=== PATIENT | male | born 1970 | race Caucasian/White ===

== ENCOUNTER 2021-02-12 22:04 | Inpatient (IN) | payer BC, SELFPAY ==
[~2021-02-12] VITALS: Ht 180.3 cm; Wt 5.9 kg
[2021-02-12 22:21] VITALS: BP 138/74
--- NOTE | 2021-02-12 22:27 | NUR ---
PT AMBULATED TO LOBBY WITH EVEN AND STEADY GAIT.
--- NOTE | 2021-02-12 22:30 | NUR ---
PT. IS A 50 Y/O MALE THAT CAME INTO ED WITH LEFT TOE PAIN. PT. STATES A WEEK AGO HE TOOK OFF A SCAB ON LEFT TOE AND "TOE PROGRESSED WORSE." PT. RATES PAIN 0/10 ON THE PAIN SCALE. FULL RANGE OF MOTION OF BILATERAL FEET NOTED. LEFT SECOND TOE IS BLACK (NECROTIC). PT. STATES FEVER FOR PAST DAYS, BUT ALSO STATES "I HAD MY COVID SHOT A DAY OR TWO AGO." SKIN IS PINK/WARM/DRY; AAOX4 WITH EVEN AND STEADY GAIT; HR EVEN AND REGULAR; VSS; PATIENT POSITIONED FOR COMFORT; HOB ELEVATED; BEDRAILS UP X2; BED DOWN. ER MD MADE AWARE OF PT STATUS. PMH: DM, HTN, "KIDNEY PROBLEMS" ALLERGIES: NKA
--- NOTE | 2021-02-12 23:51 | NUR ---
Shirley olguin in [facility] - 02/13/21 at [address] Gomes examining patient.
--- NOTE | 2021-02-13 00:01 | NUR ---
Dr. Gomes examining patient.
[2021-02-13] MEDS ORDERED: cefTRIAXone 1,000 MG in DEXT 5% MINI-BAG PLUS 50 ML IV ONE (00:05)
[2021-02-13] MEDS ORDERED: NACL 0.9% 1,000 ML IV SCH (00:05)
--- NOTE | 2021-02-13 00:12 | NUR ---
TUCKER COMPLETED AND HANDED TO VICTORIA FROM LAB
--- NOTE | 2021-02-13 00:15 | NUR ---
LABS DRAWN AND HANDED TO VICTORIA FROM LAB.
--- NOTE | 2021-02-13 00:23 | NUR ---
XRAY AT BEDSIDE
[2021-02-13] MEDS ORDERED: cefTRIAXone 1,000 MG VIAL ONE (00:24)
[2021-02-13 00:34] LABS: BASOPHILS # (AUTO) 0.1 K/uL (0.00-0.22); BASOPHILS % (AUTO) 0.2 % (0.0-2.0); EOSINOPHILS % (AUTO) 0.1 % (0.0-4.0); HEMATOCRIT 21.5 % (36-52); HEMOGLOBIN 7.1 g/dL (12.0-18.0); LYMPHOCYTES # (AUTO) 1.1 K/uL (2.0-11.5); LYMPHOCYTES % (AUTO) 3.8 % (20.5-51.1); MEAN CORPUSCULAR HEMOGLOBIN 30 pg (27-31); MEAN CORPUSCULAR HGB CONC 33 g/dL (33-37); MEAN CORPUSCULAR VOLUME 91.7 fL (80-94); MONOCYTES # (AUTO) 2.5 K/uL (0.8-1.0); MONOCYTES % (AUTO) 8.3 % (1.7-9.3); NEUTROPHILS # (AUTO) 26.5 K/uL (1.8-7.7); NEUTROPHILS % (AUTO) 87.6 % (42.2-75.2); PLATELET COUNT (AUTO) 344 K/uL (140-450); RED BLOOD CELL COUNT(AUTO) 2.35 MIL/uL (4.20-6.10); RED CELL DISTRIBUTION WIDTH 12.6 % (11.6-13.7)
[2021-02-13 00:43] LABS: ALBUMIN 3.1 g/dL (3.4-5.0); CARBON DIOXIDE 21.9 mmol/L (21-32); POTASSIUM 3.9 mmol/L (3.5-5.1); TOTAL BILIRUBIN 0.4 mg/dL (0.0-1.0)
--- NOTE | 2021-02-13 00:55 | NUR ---
RECHECKED TEMP ORAL = 98.8
[2021-02-13 00:56] LABS: WHITE BLOOD COUNT (AUTO) 30.3 K/uL (4.8-10.8)
[2021-02-13 00:58] LABS: CREATININE 13.4 mg/dL (0.6-1.3)
--- NOTE | 2021-02-13 02:34 | NUR ---
LIYAH SANDS AT BEDSIDE
[2021-02-13] MEDS ORDERED: ACETAMINOPHEN 325 MG TAB PO PRN (02:45)
[2021-02-13] MEDS ORDERED: KCL 20 MEQ/WATER INJ PREMIX 200 ML IV PRN (02:45)
[2021-02-13] MEDS ORDERED: MAGNESIUM OXIDE 400 MG TAB PO PRN (02:45)
[2021-02-13] MEDS ORDERED: HYDROcodone/APAP 5/325 MG 1 TAB TAB PO PRN (02:45)
[2021-02-13] MEDS ORDERED: MAG SULF 2000 MG/WATER PREMIX 50 ML IV PRN (02:45)
[2021-02-13] MEDS ORDERED: POTASSIUM CHLORIDE 10 MEQ TABER PO PRN (02:45)
[2021-02-13] MEDS ORDERED: ONDANSETRON 4 MG/2 ML VIAL IVP PRN (02:45)
[2021-02-13] MEDS ORDERED: VANCOMYCIN PER PHARMACY MC PRN (02:45)
[2021-02-13] MEDS ORDERED: MORPHINE SULFATE 4 MG/ML SYR IVP PRN (02:45)
[2021-02-13] MEDS ORDERED: ERGO-30 PO (03:02)
[2021-02-13] MEDS ORDERED: FURO-572 PO (03:02)
[2021-02-13] MEDS ORDERED: INSU100S22 SUBQ (03:02)
[2021-02-13] MEDS ORDERED: AMLO2.5T PO (03:02)
[2021-02-13] MEDS ORDERED: VANCOMYCIN 1GM/DEXT 5% PREMIX 200 ML IV SCH (03:15)
[2021-02-13] MEDS: NACL 0.9% 1,000 ML IV SCH ×2 (03:40→16:13)
[2021-02-13] MEDS ORDERED: VANCOMYCIN 1,000 MG VIAL ONE (03:55)
--- NOTE | 2021-02-13 05:00 | NUR ---
PT. LAYING COMFORTABLY WITH EYES CLOSED IN SUPINE POSITION WITH AT BEDSIDE. AUDIBLE SNORING SOUNDS CAN BE HEARD. VOICES NO COMPLAINTS AT THIS TIME.
--- NOTE | 2021-02-13 05:40 | NUR ---
PT. AMBULATED TO BATHROOM WITH EVEN AND STEADY GAIT
--- NOTE | 2021-02-13 07:12 | NUR ---
GAVE REPORT TO OSVALDO ARCHIBALD. TRANSFER OF CARE AT THIS TIME.
--- NOTE | 2021-02-13 07:36 | NUR ---
Patient resting in bed, vital signs stable, all needs met at this time.
[2021-02-13] MEDS: DOCUSATE SODIUM 100 MG GELCAP PO SCH (09:25)
[2021-02-13] MEDS: INSULIN LISPRO SLIDING SCALE 100 UNITS/ML VIAL SUBQ PRN (10:11)
[2021-02-13 10:54] LABS: ANION GAP 19.3 (8-16); CARBON DIOXIDE 20.7 mmol/L (21-32)
[2021-02-13 10:57] LABS: CREATININE 12.7 mg/dL (0.6-1.3)
--- NOTE | 2021-02-13 17:06 | NUR ---
DC PLANNING: ORDERS RECEIVED TO SET UP OP HD. JACKIE SPOKE WITH [employer], INSTRUCTIONS TO FAAX INFORMATION TO [facility]. PHONE # [phone], FAX [phone]. JACKIE WILL FOLLOW UP ON TUESDAY AFTER HD ACCESS PLACED AND HD STARTED. Addendum: 02/17/21 at 0906 by Katerine Moreira CM DC PLANNING: PATIENT STARTED HD ON 02/13 AFTER RIGHT IJ WAS PLACED. SPOKE WITH DR TURK TO LET HIM KNOW THAT OP HD ARRANGEMENTS HAVE BEEN STARTED AND THAT PATIENT WILL REQUIRE MORE PERMANENT ACCESS BEFORE HE IS DC'D. JACKIE LEFT A MESSAGE FOR THE HD COORDINATOR ASSIGNED BY VASILIY HARKINS ([phone]), MESSAGE LEFT ASKING FOR UPDATE ON ARRANGEMENTS. JACKIE WILL FOLLOW FOR NEEDS. 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 CLINICAL INFORMATION FAXED TO SHAHANA SANDS, FOLLOWED UP WITH HIS HD COORDINATOR ALY ([phone]), WAITING FOR CLARIFICATION ON TB CLEARANCE, LAB VS CXR. PATIENT LIVES WITH HIS AND 2 CHILDREN IN A SINGLE STORY HOUSE, IS IN SALES. HAS NOT BEEN COMPLIANT WITH DM MANAGEMENT IN THE PAST, NOW HAS A CONTINUOUS MONITORING PATCH AND SCANNER. CURRENTLY HAS [employer], AND IS WORKING WITH P.T. FOR AMBULATION. WILL REQUEST A FWW FROM INSURANCE, PATIENT HAS NO PRIOR H/O HOME HEALTH OR OTHER DME ASIDE FROM A GLUCOMETER. PATIENTS STATES SHE IS ABLE TO PROVIDE SUPPORT FOR HIS WOUND CARE, CM WILL ALSO ASK FOR HOME HEALTH TO FOLLOW INITIALLY AFTER DISCHARGE. ALL OF ABOVE DISCUSSED WITH THE PATIENT AND HIS WHO ARE IN AGREEMENT WITH PLAN. PATIENT WILL RETURN HOME WITH HOME HEALTH AND FWW AFTER DC WITH OP HD. CM WILL FOLLOW FOR NEEDS. Addendum: 02/17/21 at 1642 by Katerine Moreira CM DC PLANNING: CM SPOKE WITH LUCIANO FROM [employer], [facility] FOR CONTINUED STAY [id number], INSURANCE DOES NOT WANT PATIENT TO TRANSFER IN-NETWORK UNDER [employer]. CM WILL FOLLOW FOR NEEDS. Addendum: 02/18/21 at 1216 by Katerine Moreira CM DC PLANNING: TB CLEARANCE AND HEP B CORE REQUESTED BY ALY AT [facility], ORDERS PLACED FOR 2 VIEW CXR FOR TB, LAB ORDER PLACED. ENDORSED PATIENT REQUEST FOR A CHAIR TIME LATE IN THE DAY POSSIBLE, NOW PENDING PLACEMENT OF TUNNEL CATH FOR HD ACCESS ONCE PATIENT IS CLEARED BY ID. JACKIE WILL FOLLOW FOR NEEDS. Addendum: 02/20/21 at 1128 by Katerine Moreira CM DC PLANNING: UPDATED CLINICAL REVIEW GIVEN TO JACKIE MENDIETA FOR [facility] ([phone]). SPOKE WITH ALY AT [employer] ([phone]), FAXED UPDATED HD FLOW SHEETS. CHAIR TIME NOT YET ASSIGNED. PATIENT TO SURGERY TODAY FOR LEFT METATARSAL AMPUTATION, POSSIBLE TUNNEL CATH NEXT WEEK. CM WILL FOLLOW FOR NEEDS. Addendum: 02/23/21 at 0927 by Katerine Moreira CM DC PLANNING: TC CLARK LU AT [facility], STATES THAT PATIENT IS SET UP FOR [facility], CHAIR TIME 4:45 AM, TENTATIVELY SCHEDULED TO START SUNDAY 02/25. START TIME IS FLEXIBLE PENDING TUNNEL CATH PLACEMENT. CM WILL FOLLOW FOR NEEDS. Addendum: 02/23/21 at 1606 by Katerine Moreira CM DC PLANNING: CM SPOKE WITH GAYATRI AT [facility], GAVE UPDATED CLINICAL REVIEW. GAYATRI STATES THAT [facility] IS GETTING AN SARAH FOR THE [employer]OTHES IR[employer]ER WHO COVERS [facility], AND IS AWARE THAT PATIENT IS GOING TO SURGERY TODAY FOR METATARSAL AMPUTATION AND TUNNEL CATH PLACEMENT FOR HD. PATIENT WILL ALSO NEED HOME HEALTH AND A FWW. CM WILL FOLLOW FOR NEEDS. Addendum: 02/24/21 at 1056 by Katerine Moreira CM DC PLANNING: ORDERS FOR FWW AND HOME HEALTH FAXED TO JACKIE MENDIETA AT [facility]/[employer]. CM WILL FOLLOW FOR NEEDS. Addendum: 02/24/21 at 1103 by Katerine Moreira CM DC PLANNING: CM SPOKE WITH ALY AT [facility], CONFIRMED THAT PATIENT WILL START AT [facility] ON 02/27. CM WILL CONTINUE TO FOLLOW. Addendum: 02/24/21 at 1222 by Katerine Moreira CM DC PLANNING: JACKIE SPOKE WITH DR TIAN TO UPDATE HIM ON DC ARRANGEMENTS AND LACK OF FINAL CLEARANCE FROM [facility]ILI[facility] PASHA AND [facility]. VM FROM GAYATRI MEJIA AT [facility]. PATIENT FWW ARRANGED WITH ZACARI[facility], , HOME HEALTH ARRANGED WITH [facility]NA[facility] [phone]. JACKIE SPOKE WITH DR. OG LAYTON DP, STATES SHE WILL SPEAK WITH DR PAK FOR CLEARANCE TO DC AND WOUND ARE RECOMMENDATIONS. STATES THAT THE DAILY WOUND CARE STATED IN HER 02/24 NOTES SHOULD START TOMORROW WITH HOME HEALTH. SPOKE WITH ALY AT [facility], SHE STATES SHE IS WAITING FOR THEM TO RESPOND REGARDING CHAIR TIME IN AM. PATIENT GIVEN [facility] ADDRESS, PHONE NUMBER AND DAYS AND CHAIR TIME FOR HIS HD. CM WILL FOLLOW FOR NEEDS. Addendum: 02/24/21 at 1441 by Katerine Moreira CM DC PLANING: PATIENT DC ON HOLD SARAH WITH [employer] HAS NOT BEEN EXECUTED BY [facility]. DR [facility]IAN [facility] NOTIFIED OF DELAY. CM WILL FOLLOW FOR NEEDS. Addendum: 02/25/21 at 1028 by Katerine Moreira CM DC PLANNING: LEFT FOR GAYATRI AT [facility] ENDORSING DC IN AM PATIENT IS RECEIVING HD TODAY. ALSO NOTIFIED [facility] HOME HEALTH PLAN FOR DC IN AM. JACKIE WILL FOLLOW. Addendum: 02/26/21 at 1400 by Katerine Moreira CM DC PLANNING: PATIENT TO DC HOME TODAY. JACKIE NOTIFIED [facility] OF HIS DISCHARGE ([phone]). JACKIE NOTIFIED [facility] OF PATIENT DC TODAY. JACKIE NOTIFIED ALY VILLAGOMEZ [facility] OF HIS DC TODAY. JACKIE SPOKE WITH THE PATIENTS NURSE VALENTINO, ENDORSED THAT PATIENT WILL NEED SOME WOUND CARE SUPPLIES SENT HOME WITH HIM. CM WILL FOLLOW FOR NEEDS.
--- NOTE | 2021-02-13 17:27 | NUR ---
RECEIVED PT FROM ER PATIENT ALERT, AWAKE , ORIENTED, NO C/O PAIN, FAMILY AT BEDSIDE, PATIENT TALKING TO RESIDENT MD AT THIS TIME, ON ROOM AIR, NO SHORTNESS OF BREATH NOTED, WILL ENDORSE.
[2021-02-13 17:30] VITALS: BP 172/91
--- NOTE | 2021-02-13 17:31 | NUR ---
OH EXPLAINED PROCEDURE, PT SAID NO QUESTIONS CONCERNS OR COMMENTS AT THIS TIME .
--- NOTE | 2021-02-13 17:36 | NUR ---
PT WITH FEVER DR PAK AWARE, ICE PACK APPLIED UNDER ARM.
--- NOTE | 2021-02-13 17:39 | NUR ---
PT TEMP 101 PT GIVEN PRN MEDICATION
--- NOTE | 2021-02-13 18:25 | NUR ---
HD NURSE CALLED REGARDING HEMODIALYSIS ORDER.
--- NOTE | 2021-02-13 19:25 | NUR ---
PT ENDORSED TO SOFTWARE ENGINEER SALES RN . PT STABLE
[2021-02-13 20:00] VITALS: BP 145/76
[2021-02-13] MEDS ORDERED: OSMITROL 25% 12.5 GM/50 ML VIAL IV ONE (21:00)
[2021-02-13] MEDS: OSMITROL 25% 12.5 GM/50 ML VIAL IV SCH ×3 (21:00→22:00)
--- NOTE | 2021-02-13 21:00 | NUR ---
HEPARIN NOT ADMINISTERED D/T PATIENT IS SCHEDULED FOR SURGERY TOMORROW AT 9AM.
--- NOTE | 2021-02-13 22:00 | NUR ---
MANNITOL WAS ADMINISTERED BY DIALYSIS NURSE X3 DURING DIALYSIS.
[2021-02-13] MEDS ORDERED: DEXTROSE 50% 50 ML SYR IVP PRN (23:15)
[2021-02-14] VITALS: BP 135/72
[2021-02-14] MEDS: NACL 0.9% 1,000 ML IV SCH ×2 (03:45→16:15)
[2021-02-14 04:00] VITALS: BP 151/87
--- NOTE | 2021-02-14 04:51 | NUR ---
PATIENT IS SLEEPING. NO SOB NOTED AT THIS TIME.SAFETY PRECAUTIONS IN PLACE. CALL LIGHT WITHIN REACH.
[2021-02-14] MEDS: BLOOD GLUCOSE MONITORING 1 DEV DEV FS SCH ×4 (06:56→21:26)
--- NOTE | 2021-02-14 07:25 | NUR ---
ENDORSED TO AM NURSE FOR CONTINUITY OF CARE. PATIENT IS STABLE
--- NOTE | 2021-02-14 07:26 | NUR ---
RECEIVED REPORT FROM HOTEL DESK CLERK NURSE. PATIENT SITTING IN BED WATCHING TV. NO DISTRESS NOTED. DENIES ANY PAIN. AAOX4, CALM, COOPERATIVE, APPROPRIATE AFFECT. IV SITE INTACT, PATENT, AND INFUSING IVF PER MD ORDERS. LEFT 2ND TOE NECROTIC WITH ODOR, DRESSINGS DRY AND INTACT. SCHEDULED FOR AMPUTATION OF TOE THIS AM. REVIEWED PLAN OF CARE WITH PATIENT. PATIENT VERBALIZED UNDERSTANDING. SAFETY MEASURES IN PLACE, CALL LIGHT WITHIN REACH. WILL CONTINUE TO MONITOR.
[2021-02-14 07:29] LABS: BASOPHILS # (AUTO) 0.1 K/uL (0.00-0.22); BASOPHILS % (AUTO) 0.2 % (0.0-2.0); EOSINOPHILS % (AUTO) 0.1 % (0.0-4.0); HEMATOCRIT 26.7 % (36-52); LYMPHOCYTES # (AUTO) 0.6 K/uL (2.0-11.5); LYMPHOCYTES % (AUTO) 2.3 % (20.5-51.1); MEAN CORPUSCULAR HEMOGLOBIN 30 pg (27-31); MEAN CORPUSCULAR HGB CONC 34 g/dL (33-37); MEAN CORPUSCULAR VOLUME 88.9 fL (80-94); MONOCYTES % (AUTO) 7.7 % (1.7-9.3); NEUTROPHILS # (AUTO) 23.4 K/uL (1.8-7.7); NEUTROPHILS % (AUTO) 89.7 % (42.2-75.2); PLATELET COUNT (AUTO) 354 K/uL (140-450); RED CELL DISTRIBUTION WIDTH 15.9 % (11.6-13.7)
[2021-02-14 07:48] LABS: WHITE BLOOD COUNT (AUTO) 26.1 K/uL (4.8-10.8)
[2021-02-14 07:51] LABS: ALBUMIN 2.6 g/dL (3.4-5.0); ANION GAP 19.3 (8-16); CARBON DIOXIDE 21.3 mmol/L (21-32); PHOSPHORUS 6.3 mg/dL (2.5-4.9); POTASSIUM 3.6 mmol/L (3.5-5.1); TOTAL BILIRUBIN 0.6 mg/dL (0.0-1.0)
[2021-02-14 08:00] VITALS: BP 166/87
[2021-02-14 08:09] LABS: CREATININE 9.2 mg/dL (0.6-1.3)
--- NOTE | 2021-02-14 08:25 | NUR ---
PATIENT HAS BEEN SCREENED AND CATEGORIZED HIGH NUTRITION RISK. PATIENT WILL BE SEEN WITHIN 1-2 DAYS OF ADMISSION. 02/14/21-02/15/[address]
[2021-02-14] MEDS: DOCUSATE SODIUM 100 MG GELCAP PO SCH (08:30)
--- NOTE | 2021-02-14 08:31 | NUR ---
SCHEDULED MEDICATIONS NOT GIVEN PATIENT SCHEDULED FOR SURGERY ON RIGHT 2ND TOE TODAY AROUND 0900. WILL CONTINUE TO MONITOR.
--- NOTE | 2021-02-14 09:00 | NUR ---
DR. PUENTE ON UNIT FOR CONSENT FOR SURGERY. TALKED TO PATIENT/FAMILY AT BEDSIDE. CONSENTS SIGNED. OR NURSES AT BEDSIDE TO TAKE PATIENT FOR OR. WILL CONTINUE TO MONITOR WHEN PATIENT RETURNS ON UNIT.
[2021-02-14] MEDS ORDERED: BUPIVACAINE-MPF 0.25% 30 ML VIAL INJ ONE (09:07)
[2021-02-14] MEDS ORDERED: LABETALOL 100 MG/20 ML VIAL ONE (09:33)
[2021-02-14] MEDS ORDERED: DESFLURANE 240 ML BTL INH ONE (09:33)
[2021-02-14] MEDS ORDERED: fentaNYL citrate 0.05 MG/ML VIAL ONE (09:36)
[2021-02-14] MEDS ORDERED: PROPOFOL 200 MG/20 ML VIAL IV ONE (10:04)
[2021-02-14] MEDS ORDERED: ONDANSETRON 4 MG/2 ML VIAL ONE (10:04)
[2021-02-14] MEDS ORDERED: DEXAMETHASONE 4 MG/ML VIAL ONE (10:04)
[2021-02-14] MEDS ORDERED: ONDANSETRON 4 MG/2 ML VIAL IVP PRN (10:45)
--- NOTE | 2021-02-14 10:55 | NUR ---
02/14/21 RD INITIAL ASSESSMENT COMPLETED PLEASE REFER TO NUTRITION ASSESSMENT UNDER CARE ACTIVITY FOR ESTIMATED NUTRITIONAL NEEDS. 1. RECOMMEND RENAL, CCHO DIET WHEN MEDICALLY APPROPRIATE 2. RECOMMEND DIET EDUCATION 3. RD TO FOLLOW-UP 2-3 DAYS, HIGH RISK SHEA CHAVIRA, [facility]
[2021-02-14] MEDS ORDERED: VANCOMYCIN 500 MG in DEXTROSE 5% 100 ML IV SCH (11:00)
--- NOTE | 2021-02-14 11:30 | NUR ---
PATIENT BACK ON UNIT FROM OR. NO DISTRESS NOTED. DENIES ANY PAIN. V/S STABLE. ON ROOM AIR. S/P LEFT 2ND TOE AMPUTATION. DRESSING DRY AND INTACT. WILL CONTINUE TO MONITOR.
[2021-02-14] MEDS: PIPERACILLIN/TAZOBACTAM 2.25 GM in DEXTROSE 5% 50 ML IV SCH ×2 (12:52→23:11)
--- NOTE | 2021-02-14 12:52 | NUR ---
SCHEDULED MEDICATIONS DUE GIVEN. WILL CONTINUE TO MONITOR.
[2021-02-14] MEDS ORDERED: PIPERACILLIN/TAZOBACTAM 3.375 GM in DEXTROSE 5% 50 ML IV SCH (13:00)
--- NOTE | 2021-02-14 14:00 | NUR ---
HD NURSE AT BEDSIDE TO START DIALYSIS. WILL CONTINUE TO MONITOR.
--- NOTE | 2021-02-14 15:43 | NUR ---
HD COMPLETED AT THIS TIME 500 ML OUT. WILL CONTINUE TO MONITOR.
--- NOTE | 2021-02-14 15:44 | NUR ---
SCHEDULED MEDICATIONS DUE GIVEN. WILL CONTINUE TO MONITOR.
[2021-02-14 16:00] VITALS: BP 160/87
[2021-02-14] MEDS: CALCIUM ACETATE 667 MG TAB PO SCH (17:25)
[2021-02-14] MEDS ORDERED: amLODIPine 5 MG TAB PO SCH (17:30)
[2021-02-14] MEDS ORDERED: FUROSEMIDE 20 MG TAB PO SCH (17:30)
--- NOTE | 2021-02-14 17:31 | NUR ---
SCHEDULED MEDICATIONS DUE GIVEN. WILL CONTINUE TO MONITOR.
--- NOTE | 2021-02-14 19:40 | NUR ---
GAVE REPORT TO BRUISE TRIMMER NURSE FOR CONTINUITY OF CARE. PATIENT IN STABLE CONDITION.
--- NOTE | 2021-02-14 19:41 | NUR ---
RECD. RESTING IN BED, AWAKE, AOX4. RESPIRATION EVEN AND UNLABORED. IV OF NS INFUSING AT 80 ML/HR, LEFT HAND G20. JUAN CATH , RIGHT IJ WITH DRESSING DRY AND INTACT. LEFT AMPUTATED SECOND TOE COVERED WITH DRESSING, DRY AND INTACT. ON IV ANTIBIOTICS. MEDICATIONS FOR THE SHIFT DISCUSSED WITH PATIENT. VERBALIZED UNDERSTANDING. DENIES PAIN 0/10.
--- NOTE | 2021-02-14 20:00 | NUR ---
Patient's Plan of Care was discussed and reviewed with PROGRESSIVE CARE UNIT REGISTERED NURSE: PETROS CARRION
[2021-02-14] MEDS ORDERED: INSULIN LANTUS 100 UNITS/ML 10 ML VIAL SUBQ SCH (21:00)
[2021-02-14] MEDS ORDERED: NON-FORMULARY ITEM (Insulin Glargine,Hum.rec.anlog (Lantus Solostar) 20 UNIT) SUBQ SCH (21:00)
[2021-02-14] MEDS: INSULIN LISPRO SLIDING SCALE 100 UNITS/ML VIAL SUBQ PRN (21:29)
[2021-02-15] VITALS: BP 160/85
--- NOTE | 2021-02-15 01:50 | NUR ---
SWEATS A LOT, TWO GOWNS GET WET. BS CHECKED - 258. WAS COVERED EARLY WITH 8 UNITS REGULAR INSULIN. WILL CHECK AGAIN IN THE MORNING.
--- NOTE | 2021-02-15 03:00 | NUR ---
SLEEPING COMFORTABLY IN BED.
--- NOTE | 2021-02-15 04:30 | NUR ---
WOKE UP, GOWN SOAKED IN PERSPIRATION. CHANGED INTO NEW GOWN AND MADE COMFORTABLE IN BED WITH PILLOWS.
[2021-02-15] MEDS: NACL 0.9% 1,000 ML IV SCH ×2 (04:45→17:30)
[2021-02-15 06:01] LABS: BASOPHILS % (AUTO) 0.2 % (0.0-2.0); HEMATOCRIT 28.1 % (36-52); HEMOGLOBIN 9.3 g/dL (12.0-18.0); LYMPHOCYTES # (AUTO) 0.5 K/uL (2.0-11.5); MEAN CORPUSCULAR HEMOGLOBIN 30 pg (27-31); MEAN CORPUSCULAR HGB CONC 33 g/dL (33-37); MEAN CORPUSCULAR VOLUME 90.4 fL (80-94); MONOCYTES # (AUTO) 1.3 K/uL (0.8-1.0); MONOCYTES % (AUTO) 5.1 % (1.7-9.3); NEUTROPHILS # (AUTO) 24.3 K/uL (1.8-7.7); PLATELET COUNT (AUTO) 379 K/uL (140-450); RED CELL DISTRIBUTION WIDTH 15.5 % (11.6-13.7)
[2021-02-15 06:32] LABS: WHITE BLOOD COUNT (AUTO) 26.1 K/uL (4.8-10.8)
[2021-02-15 06:39] LABS: ALBUMIN 2.3 g/dL (3.4-5.0); ANION GAP 19.3 (8-16); CARBON DIOXIDE 21.1 mmol/L (21-32); PHOSPHORUS 5.8 mg/dL (2.5-4.9); POTASSIUM 4.4 mmol/L (3.5-5.1); TOTAL BILIRUBIN 0.4 mg/dL (0.0-1.0)
[2021-02-15 06:59] LABS: CREATININE 7.4 mg/dL (0.6-1.3); LYMPHOCYTES % (AUTO) 1.8 % (20.5-51.1); NEUTROPHILS % (AUTO) 92.9 % (42.2-75.2)
--- NOTE | 2021-02-15 07:00 | NUR ---
RECD. RESULT OF LAB TEST FROM LAB, BUN - 73, CREATININE - 7.4. PATIENT WITH SCHEDULED DIALYSIS TODAY.
[2021-02-15] MEDS: PIPERACILLIN/TAZOBACTAM 2.25 GM in DEXTROSE 5% 50 ML IV SCH ×3 (07:02→20:55)
[2021-02-15] MEDS: BLOOD GLUCOSE MONITORING 1 DEV DEV FS SCH ×4 (07:26→20:55)
[2021-02-15] MEDS: INSULIN LISPRO SLIDING SCALE 100 UNITS/ML VIAL SUBQ PRN ×4 (07:27→20:53)
--- NOTE | 2021-02-15 07:29 | NUR ---
ENDORSED TO AM SHIFT NURSE FOR CONTINUITY OF CARE.
--- NOTE | 2021-02-15 07:30 | NUR ---
RECEIVED CHANGE OF SHIFT REPORT FROM NIGHT NURSE. NURSE REPORTS PT IS STABLE, WILL CONTINUE WITH POC. WILL PERFORM FREQ ROUNDS.
[2021-02-15 08:00] VITALS: BP 141/76
[2021-02-15] MEDS: DOCUSATE SODIUM 100 MG GELCAP PO SCH (08:08)
[2021-02-15] MEDS: FUROSEMIDE 20 MG TAB PO SCH (08:08)
[2021-02-15] MEDS: amLODIPine 5 MG TAB PO SCH (08:08)
[2021-02-15] MEDS: CALCIUM ACETATE 667 MG TAB PO SCH ×3 (08:09→17:30)
[2021-02-15] MEDS ORDERED: CRUSHER, PILL MC ONE (08:13)
[2021-02-15] MEDS: INSULIN LANTUS 100 UNITS/ML 10 ML VIAL SUBQ SCH (08:20)
--- NOTE | 2021-02-15 09:00 | NUR ---
GAVE SCHEDULED MEDS. PT TOLERATED WELL.
--- NOTE | 2021-02-15 09:30 | NUR ---
PERFORMED HOURLY ROUNDS. PT STABLE IN CONDITION, ON RA, IV RUNNING AT 80 ML/HR. HAS AT BEDSIDE. WILL CONTINUE TO MONITOR.
--- NOTE | 2021-02-15 11:00 | NUR ---
GAVE SCHEDULED MEDS. PT TOLERATED WELL.
--- NOTE | 2021-02-15 11:30 | NUR ---
PERFORMED HOURLY ROUNDS. PT STABLE IN CONDITION, ON RA, IV RUNNING AT 80 ML/HR. HAS AT BEDSIDE. WILL CONTINUE TO MONITOR.
--- NOTE | 2021-02-15 13:30 | NUR ---
PERFORMED HOURLY ROUNDS. PT STABLE IN CONDITION, ON RA, IV RUNNING AT 80 ML/HR. HAS AT BEDSIDE. WILL CONTINUE TO MONITOR.
--- NOTE | 2021-02-15 15:00 | NUR ---
PERFORMED HOURLY ROUNDS. PT STABLE IN CONDITION, ON RA, IV RUNNING AT 80 ML/HR. HAS AT BEDSIDE. WILL CONTINUE TO MONITOR.
[2021-02-15 16:00] VITALS: BP 144/84
--- NOTE | 2021-02-15 17:00 | NUR ---
GAVE SCHEDULED MEDS. PT TOLERATED WELL.
--- NOTE | 2021-02-15 19:20 | NUR ---
GAVE CHANGE OF SHIFT REPORT TO NIGHT NURSE. PT CONDITION IS STABLE.
[2021-02-15 20:00] VITALS: BP 135/80
--- NOTE | 2021-02-15 20:10 | NUR ---
PT IS AWAKE,A & O.DIALYSIS CATH.IS ON RT.IJ.IVF INFUSING WELL.NO DISTRESS NOTED NOW.CALL LIGHT IN REACH.WILL CONT.MONITORING.
[2021-02-16 04:00] VITALS: BP 126/72
[2021-02-16] MEDS: PIPERACILLIN/TAZOBACTAM 2.25 GM in DEXTROSE 5% 50 ML IV SCH ×3 (05:12→21:01)
[2021-02-16] MEDS: NACL 0.9% 1,000 ML IV SCH ×2 (05:45→20:15)
[2021-02-16] MEDS: BLOOD GLUCOSE MONITORING 1 DEV DEV FS SCH ×4 (06:00→21:13)
--- NOTE | 2021-02-16 06:45 | NUR ---
SLEPT WELL.EB=609 WILL NOT COVER.HE IS NPO FOR SURGERY.PRE-OP CHECK LIST DONE.
[2021-02-16 07:12] LABS: BASOPHILS # (AUTO) 0.1 K/uL (0.00-0.22); BASOPHILS % (AUTO) 0.3 % (0.0-2.0); EOSINOPHILS % (AUTO) 0.2 % (0.0-4.0); HEMATOCRIT 25.8 % (36-52); HEMOGLOBIN 8.5 g/dL (12.0-18.0); LYMPHOCYTES # (AUTO) 1.4 K/uL (2.0-11.5); LYMPHOCYTES % (AUTO) 7.4 % (20.5-51.1); MEAN CORPUSCULAR HEMOGLOBIN 30 pg (27-31); MEAN CORPUSCULAR HGB CONC 33 g/dL (33-37); MEAN CORPUSCULAR VOLUME 90.8 fL (80-94); MONOCYTES # (AUTO) 1.3 K/uL (0.8-1.0); MONOCYTES % (AUTO) 6.9 % (1.7-9.3); NEUTROPHILS # (AUTO) 16.5 K/uL (1.8-7.7); NEUTROPHILS % (AUTO) 85.2 % (42.2-75.2); PLATELET COUNT (AUTO) 401 K/uL (140-450); RED BLOOD CELL COUNT(AUTO) 2.84 MIL/uL (4.20-6.10); RED CELL DISTRIBUTION WIDTH 15.9 % (11.6-13.7); WHITE BLOOD COUNT (AUTO) 19.4 K/uL (4.8-10.8)
[2021-02-16 07:33] LABS: ALBUMIN 2.1 g/dL (3.4-5.0); ANION GAP 19.5 (8-16); CARBON DIOXIDE 21.8 mmol/L (21-32); PHOSPHORUS 6.1 mg/dL (2.5-4.9); POTASSIUM 4.3 mmol/L (3.5-5.1); TOTAL BILIRUBIN 0.3 mg/dL (0.0-1.0)
[2021-02-16 08:00] VITALS: BP 140/80
[2021-02-16] MEDS: CALCIUM ACETATE 667 MG TAB PO SCH ×3 (08:00→16:52)
--- NOTE | 2021-02-16 08:00 | NUR ---
RECEIVED REPORT FROM JOAN RN AT BEDSIDE FOR CONTINUITY OF CARE. PATIENT ALERT AWAKE ORIENTED X4. NOT IN ANY DISTRESS NOTED. WITH IVF ON GOING AND INFUSING WELL. NPO OBSERVED FOR POSSIBLE SURGERY. FOR DIALYSIS TODAY. NEEDS ATTENDED. WILL CONTINUE TO MONITOR.
[2021-02-16 08:25] LABS: CREATININE 7.9 mg/dL (0.6-1.3)
[2021-02-16] MEDS: FUROSEMIDE 20 MG TAB PO SCH (09:00)
[2021-02-16] MEDS: INSULIN LANTUS 100 UNITS/ML 10 ML VIAL SUBQ SCH (09:00)
[2021-02-16] MEDS: amLODIPine 5 MG TAB PO SCH ×2 (09:00→20:39)
[2021-02-16] MEDS: DOCUSATE SODIUM 100 MG GELCAP PO SCH (09:00)
[2021-02-16] MEDS ORDERED: VANCOMYCIN 1,000 MG in DEXTROSE 5% 250 ML IV SCH (13:00)
--- NOTE | 2021-02-16 13:00 | NUR ---
EXPLAINED TO THE PATIENT THAT THE SURGERY WILL BE DELAYED. PATIENT UNDERSTAND, WILL CONTINUE TO MONITOR.
[2021-02-16 16:00] VITALS: BP 148/90
[2021-02-16] MEDS ORDERED: MIDAZOLAM 2 MG/2 ML VIAL ONE (17:30)
[2021-02-16] MEDS ORDERED: SEVOFLURANE 250 ML BTL INH ONE (17:30)
[2021-02-16] MEDS ORDERED: fentaNYL citrate 0.05 MG/ML VIAL ONE (17:30)
[2021-02-16] MEDS ORDERED: PROPOFOL 200 MG/20 ML VIAL IV ONE (17:30)
--- NOTE | 2021-02-16 17:30 | NUR ---
PATIENT WENT TO OR, ALERT AWAKE ORIENTED, NOT IN ANY DISTRESS. VITALS STABLE.
[2021-02-16] MEDS ORDERED: BUPIVACAINE-MPF 0.25% 30 ML VIAL INJ ONE (17:33)
[2021-02-16] MEDS ORDERED: ONDANSETRON 4 MG/2 ML VIAL IVP PRN (17:40)
[2021-02-16] MEDS ORDERED: HYDROmorphone 1 MG/ML AMP IVP PRN (17:40)
[2021-02-16] MEDS ORDERED: BLOOD GLUCOSE MONITORING 1 DEV DEV FS SCH (17:40)
[2021-02-16] MEDS ORDERED: diphenhydrAMINE 50 MG/ML VIAL IVP PRN (17:40)
[2021-02-16] MEDS ORDERED: ONDANSETRON 4 MG/2 ML VIAL ONE (18:03)
[2021-02-16] MEDS ORDERED: DEXAMETHASONE 4 MG/ML VIAL ONE (18:03)
--- NOTE | 2021-02-16 19:40 | NUR ---
PATIENT STILL IN OR, REPORT GIVEN TO OSVALDO WATKINS FOR CONTINUITY OF CARE.
--- NOTE | 2021-02-16 19:42 | NUR ---
RECEIVED ENDORSEMENT FROM AM SHIFT RN. PATIENT IS NOT IN THE UNIT, PLAN OF CARE DISCUSSED.
[2021-02-16 20:00] VITALS: BP 165/88
--- NOTE | 2021-02-16 20:37 | NUR ---
INFORMED PLASTIC SURGERY SPECIALIST DR. RANDALL, REGARDING PATIENT BP 165/88, HR 89 AND THAT PT CAME BACK FROM SURGERY. AM BP MEDS WASN'T GIVEN, HE SAID TO GIVE THE AM NORVASC THAT WASN'T GIVEN DUE TO NPO BEFORE SURGERY AND ORDERED A PRN HYDRALAZINE 10MG IVP Q6 PRN FOR SBP >160. NOTED AND CARRIED OUT.
[2021-02-16] MEDS: INSULIN LISPRO SLIDING SCALE 100 UNITS/ML VIAL SUBQ PRN (21:15)
--- NOTE | 2021-02-16 21:16 | NUR ---
PATIENT IS AWAKE, ALERT ORIENTED X4, DUE MEDS GIVEN ORDERED, TOLERATED WELL, WILL CONTINUE TO MONITOR, CALL LIGHT WITHIN REACH.
[2021-02-16] MEDS: hydrALAZINE 20 MG/ML VIAL IVP PRN (21:44)
[2021-02-16 22:31] LABS: BASOPHILS # (AUTO) 0.1 K/uL (0.00-0.22); BASOPHILS % (AUTO) 0.3 % (0.0-2.0); HEMATOCRIT 26.5 % (36-52); HEMOGLOBIN 8.7 g/dL (12.0-18.0); LYMPHOCYTES # (AUTO) 0.4 K/uL (2.0-11.5); LYMPHOCYTES % (AUTO) 2.1 % (20.5-51.1); MEAN CORPUSCULAR HEMOGLOBIN 30 pg (27-31); MEAN CORPUSCULAR HGB CONC 33 g/dL (33-37); MEAN CORPUSCULAR VOLUME 91.3 fL (80-94); MONOCYTES # (AUTO) 0.4 K/uL (0.8-1.0); MONOCYTES % (AUTO) 2.1 % (1.7-9.3); NEUTROPHILS # (AUTO) 19.7 K/uL (1.8-7.7); NEUTROPHILS % (AUTO) 95.5 % (42.2-75.2); PLATELET COUNT (AUTO) 408 K/uL (140-450); RED CELL DISTRIBUTION WIDTH 15.7 % (11.6-13.7); WHITE BLOOD COUNT (AUTO) 20.6 K/uL (4.8-10.8)
[2021-02-16 22:45] LABS: ALBUMIN 2.2 g/dL (3.4-5.0); ANION GAP 14.8 (8-16); CARBON DIOXIDE 24.2 mmol/L (21-32); TOTAL BILIRUBIN 0.4 mg/dL (0.0-1.0)
[2021-02-16 23:10] LABS: CREATININE 5.8 mg/dL (0.6-1.3)
--- NOTE | 2021-02-16 23:11 | NUR ---
BUN 58, CR 5.8 RECEIVED FROM LAB, TRENDING DOWN, DIALYSIS PATIENT.
[2021-02-17] MEDS: NACL 0.9% 1,000 ML IV SCH (02:00)
--- NOTE | 2021-02-17 02:11 | NUR ---
CHECKED PATIENT, ASLEEP, O2 SAT 98%, NOTED CHEST RISE, CALL LIGHT WITHIN REACH.
--- NOTE | 2021-02-17 03:50 | NUR ---
RT INSIDE THE ROOM AND TALKING TO THE PATIENT. PATIENT SAID THAT SHE DOESN'T WANT TO BE ON BIPAP. RT EXPLAINED THE RISKS AND BENEFITS, STILL PATIENT REFUSED BIPAP. RT PUT PATIENT ON 3L NC, WILL MONITOR, CALL LIGHT WITHIN REACH. Addendum: 02/17/21 at 0359 by Jami Gee RN THE DOCUMENTATION ABOVE IS NOT FOR THIS PATIENT. ERROR NOTES ABOVE.
[2021-02-17 04:00] VITALS: BP 133/83
[2021-02-17] MEDS: PIPERACILLIN/TAZOBACTAM 2.25 GM in DEXTROSE 5% 50 ML IV SCH ×3 (05:29→21:00)
--- NOTE | 2021-02-17 05:35 | NUR ---
ZOSYN IV GIVEN ORDERED, NO A/R NOTED, CALL LIGHT WITHIN REACH.
[2021-02-17] MEDS: BLOOD GLUCOSE MONITORING 1 DEV DEV FS SCH ×4 (06:19→21:00)
[2021-02-17] MEDS: INSULIN LISPRO SLIDING SCALE 100 UNITS/ML VIAL SUBQ PRN ×4 (06:20→21:45)
[2021-02-17 06:42] LABS: BASOPHILS % (AUTO) 0.2 % (0.0-2.0); HEMATOCRIT 25.7 % (36-52); HEMOGLOBIN 8.5 g/dL (12.0-18.0); LYMPHOCYTES # (AUTO) 0.7 K/uL (2.0-11.5); LYMPHOCYTES % (AUTO) 3.4 % (20.5-51.1); MEAN CORPUSCULAR HEMOGLOBIN 30 pg (27-31); MEAN CORPUSCULAR HGB CONC 33 g/dL (33-37); MEAN CORPUSCULAR VOLUME 90.6 fL (80-94); MONOCYTES # (AUTO) 0.8 K/uL (0.8-1.0); MONOCYTES % (AUTO) 4.1 % (1.7-9.3); NEUTROPHILS # (AUTO) 18.8 K/uL (1.8-7.7); NEUTROPHILS % (AUTO) 92.3 % (42.2-75.2); PLATELET COUNT (AUTO) 405 K/uL (140-450); RED BLOOD CELL COUNT(AUTO) 2.84 MIL/uL (4.20-6.10); RED CELL DISTRIBUTION WIDTH 15.5 % (11.6-13.7); WHITE BLOOD COUNT (AUTO) 20.4 K/uL (4.8-10.8)
[2021-02-17 07:05] LABS: ALBUMIN 2.2 g/dL (3.4-5.0); ANION GAP 18.1 (8-16); CARBON DIOXIDE 22.1 mmol/L (21-32); PHOSPHORUS 6.1 mg/dL (2.5-4.9); POTASSIUM 4.2 mmol/L (3.5-5.1); TOTAL BILIRUBIN 0.4 mg/dL (0.0-1.0)
--- NOTE | 2021-02-17 07:25 | NUR ---
RECEIVED BEDSIDE REPORT FROM FUSION ANALYST NURSE FOR CONTINUITY OF CARE FOR PT. PT IS SLEEPING WITH UNLABORED BREATHING. SKIN IS DRY AND WARM. DRESSING ON LEFT FOOT IS DRY AND INTACT. IV IS ON LEFT FOREARM 20 GAUGE. PLAN OF CARE WAS DISCUSSED. CALL LIGHT WITHIN REACH. WILL CONTINUE TO MONITOR.
--- NOTE | 2021-02-17 07:42 | NUR ---
PATIENT STABLE, SAFETY MEASURES IN PLACE, ENDORSED AT BEDSIDE TO AM SHIFT RN.
[2021-02-17 08:00] VITALS: BP 152/81
[2021-02-17] MEDS: DOCUSATE SODIUM 100 MG GELCAP PO SCH (08:27)
[2021-02-17] MEDS: FUROSEMIDE 20 MG TAB PO SCH (08:27)
[2021-02-17] MEDS ORDERED: CALCIUM ACETATE 667 MG TAB PO SCH (08:32)
[2021-02-17] MEDS: INSULIN LANTUS 100 UNITS/ML 10 ML VIAL SUBQ SCH (08:48)
[2021-02-17 09:07] LABS: HEPATITIS B SURFACE ANTIBODY Non Reactive (.); HEPATITIS B SURFACE ANTIGEN Negative (Negative)
--- NOTE | 2021-02-17 09:45 | NUR ---
PT IS AWAKE AND ALERT ON HIS PHONE. PT IS ON RA WITH UNLABORED BREATHING. IS AT HIS BEDSIDE. PT IS STABLE. CALL LIGHT WITHIN REACH. WILL CONTINUE TO MONITOR.
--- NOTE | 2021-02-17 11:45 | NUR ---
PT IS AWAKE AND ALERT. PT IS READING A MAGAZINE. IS AT BEDSIDE. PT IS ON RA WITH UNLABORED BREATHING. PT IS STABLE. PT DENIES ANY PAIN. CALL LIGHT WITHIN REACH. WILL CONTINUE TO MONITOR.
[2021-02-17] MEDS: CALCIUM ACETATE 667 MG TAB PO SCH ×2 (12:33→16:56)
--- NOTE | 2021-02-17 15:51 | NUR ---
02/17/21 RD FOLLOW UP COMPLETED PLEASE REFER TO NUTRITION ASSESSMENT UNDER CARE ACTIVITY FOR ESTIMATED NUTRITIONAL NEEDS. 1. CONTINUE CCHO AND RENAL DIET TOLERATED 2. RECOMMEND SULMA BID 3. RD PROVIDED NUTRITION EDUCATION ON RENAL DIET, WOUND HEALING AND CONSISTENT CARBOHYDRATE INTAKE 4. RD TO FOLLOW-UP 5-7 DAYS, LOW RISK YUE [place], RD
[2021-02-17 16:00] VITALS: BP 162/90
--- NOTE | 2021-02-17 16:50 | NUR ---
PT IS SLEEPING BUT AWAKEN BY VOICE. PT IS ON RA WITH UNLABORED BREATHING. NO DISTRESS NOTED. PT STATES NO PAIN. PTS SON AND ANOTHER FAMILY MEMBER ARE AT BEDSIDE. PT IS STABLE. CALL LIGHT WITHIN REACH. WILL CONTINUE TO MONITOR.
--- NOTE | 2021-02-17 18:09 | NUR ---
PT IS AWAKE AND ALERT. PT IS SITTING IN BED ON HIS PHONE. PT ON RA WITH UNLABORED BREATHING. PT STATES NO PAIN AT THE TIME. CALL LIGHT WITHIN REACH. WILL CONTINUE TO MONITOR.
--- NOTE | 2021-02-17 19:25 | NUR ---
GAVE BEDSIDE REPORT TO NIGHTSHIFT NURSE FOR CONTINUITY OF CARE. PT IS STABLE.
--- NOTE | 2021-02-17 19:30 | NUR ---
RECEIVED REPORT FROM AM DAYSHIFT NURSE AT BEDSIDE FOR CONTINUITY OF CARE, PT IN STABLE CONDITION.
[2021-02-17 20:00] VITALS: BP 148/85
--- NOTE | 2021-02-17 20:00 | NUR ---
PT LYING IN BED AOX4 ON ROOM AIR HE HAS HOB UP 35% WATCHING TV . SKIN INTACT EXCEPT FOR LEFT FOOT HAS ANNALEE BANDAGE WHICH IS DRY AND INTACT. HE ALSO HAS A RIGHT SIDE EJ AND QUIETEN CATH FOR HD,HE HAS A LEFT F/A 20G INTACT AND SALINE LOCKED. PT DENIES ANY PAIN AT THIS TIME. V/S FOLLOWS: T 98.2 P 95 R 17 B/P 148/85 02 99% ON ROOM AIR. ALL ORDERED PRECAUTIONS IN PLACE.
--- NOTE | 2021-02-17 21:30 | NUR ---
PT FINGERSTICK IS 221, HE WAS GIVEN 4 UNITS OF HUMALOG COVERAGE. PT WAS GIVEN SCHEDULED ZOSYN IV AND AND HEPARIN SQ. EDUCATION AND PURPOSE FOR SCHEDULED MEDICATION EXPLAINED, PT VERBALIZED UNDERSTANDING. ALL ORDERED PRECAUTIONS IN PLACE.
--- NOTE | 2021-02-17 23:00 | NUR ---
PT IN BED WATCHING THE BASEBALL GAME ON HIS PHONE, PT DENIES ANY PAIN. ALL FALLS PRECAUTIONS IN PLACE.
--- NOTE | 2021-02-18 02:00 | NUR ---
ROUNDS DONE, PT IN BED ASLEEP IV SITE SALINE LOCKED. ALL FALLS PRECAUTIONS IN PLACE.
--- NOTE | 2021-02-18 05:00 | NUR ---
WINSTON SERVIN AND LEOBARDO ORDERED. Addendum: 02/18/21 at 0755 by Dedra Vale RN BABAK MONTERO
[2021-02-18] MEDS: PIPERACILLIN/TAZOBACTAM 2.25 GM in DEXTROSE 5% 50 ML IV SCH ×3 (05:44→20:24)
[2021-02-18] MEDS: hydrALAZINE 20 MG/ML VIAL IVP PRN (05:45)
[2021-02-18 06:00] VITALS: BP 167/96
--- NOTE | 2021-02-18 06:00 | NUR ---
FINGERSTICK IS 169, GIVEN 2 UNITS OF HUMALOG PER S/S NO S/S OF PAIN OR DISTRESS NOTED.
[2021-02-18] MEDS: INSULIN LISPRO SLIDING SCALE 100 UNITS/ML VIAL SUBQ PRN ×4 (06:31→20:20)
[2021-02-18] MEDS: BLOOD GLUCOSE MONITORING 1 DEV DEV FS SCH ×4 (06:44→20:19)
[2021-02-18 06:54] LABS: BASOPHILS # (AUTO) 0.1 K/uL (0.00-0.22); BASOPHILS % (AUTO) 0.5 % (0.0-2.0); EOSINOPHILS # (AUTO) 0.2 K/uL (0-0.4); EOSINOPHILS % (AUTO) 1.4 % (0.0-4.0); HEMATOCRIT 26.5 % (36-52); HEMOGLOBIN 8.7 g/dL (12.0-18.0); LYMPHOCYTES # (AUTO) 1.7 K/uL (2.0-11.5); LYMPHOCYTES % (AUTO) 9.8 % (20.5-51.1); MEAN CORPUSCULAR HEMOGLOBIN 30 pg (27-31); MEAN CORPUSCULAR HGB CONC 33 g/dL (33-37); MEAN CORPUSCULAR VOLUME 91.6 fL (80-94); MONOCYTES # (AUTO) 1.1 K/uL (0.8-1.0); MONOCYTES % (AUTO) 6.6 % (1.7-9.3); NEUTROPHILS # (AUTO) 13.7 K/uL (1.8-7.7); NEUTROPHILS % (AUTO) 81.7 % (42.2-75.2); PLATELET COUNT (AUTO) 480 K/uL (140-450); RED CELL DISTRIBUTION WIDTH 15.8 % (11.6-13.7); WHITE BLOOD COUNT (AUTO) 16.8 K/uL (4.8-10.8)
--- NOTE | 2021-02-18 07:20 | NUR ---
RECEIVED BEDSIDE REPORT FROM GEOPHYSICAL LABORATORY SUPERVISOR NURSE FOR CONTINUITY OF CARE. PT IS AWAKE AND ALERT. PT IS A&OX4. PT IS ON RA WITH UNLABORED BREATHING. PT DRESSING ON LEFT FOOT IS INTACT AND DRY. SKIN IS WARM AND DRY. IV ON LEFT FOREARM 20 GAUGE SALINE LOCK. PLAN OF CARE WAS DISCUSSED. PT IS STABLE. CALL LIGHT WITHIN REACH. WILL CONTINUE TO MONITOR.
[2021-02-18 07:35] LABS: ALBUMIN 2.3 g/dL (3.4-5.0); CARBON DIOXIDE 22.8 mmol/L (21-32); PHOSPHORUS 6.3 mg/dL (2.5-4.9); POTASSIUM 3.8 mmol/L (3.5-5.1); TOTAL BILIRUBIN 0.3 mg/dL (0.0-1.0)
[2021-02-18 07:51] LABS: CREATININE 7.1 mg/dL (0.6-1.3)
[2021-02-18] MEDS: DOCUSATE SODIUM 100 MG GELCAP PO SCH (09:00)
[2021-02-18] MEDS: amLODIPine 5 MG TAB PO SCH (09:00)
[2021-02-18] MEDS: FUROSEMIDE 20 MG TAB PO SCH (09:31)
[2021-02-18] MEDS: CALCIUM ACETATE 667 MG TAB PO SCH ×3 (09:31→16:40)
--- NOTE | 2021-02-18 09:33 | NUR ---
PT IS AWAKE WITH AT BEDSIDE. ADMINISTER PRESCRIBED MEDICATION. PT REFUSED COLACE BECAUSE HE SAID HE HAD LOOSE STOOL AND DIDN'T NEED IT. MEDICATION EDUCATION PERFORMED. PT VERBALIZED UNDERSTANDING. PT IS STABLE. SAFETY MEASURES IN PLACE AND WILL CONTINUE TO MONITOR.
[2021-02-18] MEDS: INSULIN LANTUS 100 UNITS/ML 10 ML VIAL SUBQ SCH (09:35)
--- NOTE | 2021-02-18 10:35 | NUR ---
TALKED TO PHARMACY PAYTON ABOUT MEDICATION VANCOMYCIN THAT WILL BE GIVEN AFTER DIALYSIS. WILL CALL PHARMACY WHEN DIALYSIS IS DONE TO RECEIVE VANCOMYCIN DOSE.
--- NOTE | 2021-02-18 11:30 | NUR ---
PT BS WAS 276 AND 6 UNITS WAS ADMINISTERED. WILL CONTINUE TO MONITOR.
[2021-02-18 12:00] VITALS: BP 141/76
--- NOTE | 2021-02-18 12:15 | NUR ---
PT IS IN BED WATCHING A MOVIE ON HIS PHONE. PT IS ON RA WITH UNLABORED BREATHING. PT STATES NO PAIN. CALL LIGHT WITHIN REACH. ALL SAFETY MEASURES ARE IN PLACE AND WILL CONTINUE TO MONITOR.
--- NOTE | 2021-02-18 13:40 | NUR ---
PT IS WHEELED OFF TO GET CHEST XRAY BY TECH. PT IS STABLE.
--- NOTE | 2021-02-18 13:59 | NUR ---
PT IS BACK FROM CHEST XRAY. PT IS STABLE WILL CONTINUE TO MONITOR.
--- NOTE | 2021-02-18 15:35 | NUR ---
PT IS AWAKE AND ALERT. PT SITTING IN BED ON HIS PHONE. PT IS RA WITH UNLABORED BREATHING. PT IS STABLE. CALL LIGHT WITHIN REACH. WILL CONTINUE TO MONITOR.
[2021-02-18 16:00] VITALS: BP 143/83
--- NOTE | 2021-02-18 16:40 | NUR ---
BLOOD SUGAR 170 MG/DL INSULIN COVERAGE 2 UNITS GIVEN AND ADMINISTERED SCHEDULED MEDICATION. PT TOLERATED WELL.
--- NOTE | 2021-02-18 17:05 | NUR ---
DIALYSIS NURSE IS AT BEDSIDE AND STARTING DIALYSIS. PT IS STABLE. WILL CONTINUE TO MONITOR.
--- NOTE | 2021-02-18 19:20 | NUR ---
GAVE BEDSIDE REPORT TO NIGHTSHIFT NURSE FOR CONTINUE OF CARE. PT IS STABLE.
--- NOTE | 2021-02-18 20:20 | NUR ---
BLOOD SUGAR 196. INSULIN COVERAGE GIVEN ORDERED. HS SNACK PROVIDED. WILL CONTINUE TO MONITOR.
--- NOTE | 2021-02-18 20:30 | NUR ---
HD DONE. OUTPUT 2.5 L PT IS IN STABLE CONDITION. WILL CONTINUE TO MONITOR.
[2021-02-18] MEDS ORDERED: VANCOMYCIN 1,000 MG in DEXTROSE 5% 250 ML IV SCH (21:00)
--- NOTE | 2021-02-18 22:00 | NUR ---
,MADE ROUNDS. PT IS ASLEEP. NO S/S OF ANY DISCOMFORT NOTED.
--- NOTE | 2021-02-19 02:30 | NUR ---
CHECKED ON PT. ASLEEP. NOS/S OF ANY DISCOMFORT NOTED.
[2021-02-19 04:00] VITALS: BP 135/73
[2021-02-19] MEDS: PIPERACILLIN/TAZOBACTAM 2.25 GM in DEXTROSE 5% 50 ML IV SCH ×3 (04:31→21:27)
[2021-02-19] MEDS: BLOOD GLUCOSE MONITORING 1 DEV DEV FS SCH ×4 (05:59→21:19)
[2021-02-19] MEDS: INSULIN LISPRO SLIDING SCALE 100 UNITS/ML VIAL SUBQ PRN ×3 (06:02→21:26)
--- NOTE | 2021-02-19 06:02 | NUR ---
BLOOD SUGAR THIS AM RESULT 172. INSULIN COVERAGE GIVEN.
--- NOTE | 2021-02-19 07:25 | NUR ---
ENDORSED PT IN STABLE CONDITION TO AM NURSE.
--- NOTE | 2021-02-19 07:26 | NUR ---
RECEIVED REPORT FROM SALES REPRESENTATIVE FACILITY SERVICES NURSE. PATIENT LYING DOWN IN BED SLEEPING, AROUSABLE BY VOICE. NO DISTRESS NOTED. DENIES ANY PAIN. ON ROOM AIR. LEFT FOOT DRESSINGS DRY AND INTACT. IV SITE INTACT, PATENT, ON SALINE LOCK. REVIEWED PLAN OF CARE WITH PATIENT. PATIENT VERBALIZED UNDERSTANDING. SAFETY MEASURES IN PLACE, CALL LIGHT WITHIN REACH. WILL CONTINUE TO MONITOR.
[2021-02-19 08:00] VITALS: BP 144/61
[2021-02-19] MEDS: INSULIN LANTUS 100 UNITS/ML 10 ML VIAL SUBQ SCH (08:54)
[2021-02-19] MEDS: DOCUSATE SODIUM 100 MG GELCAP PO SCH (09:00)
[2021-02-19] MEDS: amLODIPine 5 MG TAB PO SCH (09:01)
[2021-02-19] MEDS: FUROSEMIDE 20 MG TAB PO SCH (09:01)
[2021-02-19] MEDS: CALCIUM ACETATE 667 MG TAB PO SCH ×3 (09:01→17:26)
--- NOTE | 2021-02-19 09:05 | NUR ---
PATIENT SITTING IN BED EATING BREAKFAST. NO DISTRESS NOTED. SCHEDULED MEDICATIONS DUE GIVEN. WILL CONTINUE TO MONITOR.
--- NOTE | 2021-02-19 11:15 | NUR ---
PATIENT SITTING IN BED PLAYING BOARD GAME WITH AT BEDSIDE. NO DISTRESS NOTED. CONDITION UNCHANGED. WILL CONTINUE TO MONITOR.
--- NOTE | 2021-02-19 12:58 | NUR ---
SCHEDULED MEDICATIONS DUE GIVEN. WILL CONTINUE TO MONITOR.
[2021-02-19 16:00] VITALS: BP 156/91
--- NOTE | 2021-02-19 17:26 | NUR ---
SCHEDULED MEDICATIONS DUE GIVEN. WILL CONTINUE TO MONITOR.
--- NOTE | 2021-02-19 19:25 | NUR ---
GAVE REPORT TO [employer] CULTURIST APPRENTICE NURSE FOR CONTINUITY OF CARE. PATIENT IN STABLE CONDITION.
--- NOTE | 2021-02-19 19:26 | NUR ---
RECEIVED FROM DAY SHIFT NURSE. PT IN BED AAOX4, AMBULATORY WITH WALKER. RESPIRATIONS EVEN AND UNLABORED TO ROOM AIR. ABDOMEN SOFT AND NON-TENDER. SKIN IS WARM AND DRY. PT S/P TOE AMPUTATION, DRESSING IN PLACE. PT WITH IV ACCESS ON LEFT HAND G22 PATENT AND INTACT, SALINE LOCKED. PT DIALYSIS ACCESS, JUAN CATHETER ON R UPPER CHEST. POC DISCUSSED, PT VERBALIZED UNDERSTANDING. WILL CONTINUE TO MONITOR.
[2021-02-19 20:00] VITALS: BP 155/74
--- NOTE | 2021-02-19 21:27 | NUR ---
VS STABLE. SCHEDULED MEDS GIVEN ORDERED. BLOOD SUGAR 190 INSULIN COVERAGE GIVEN ORDERED.
--- NOTE | 2021-02-20 00:18 | NUR ---
PT ASLEEP. VISIBLE CHEST RISE AND FALL NOTED. PT NOT IN DISTRESS. CALL LIGHT WITHIN REACH, WILL CONTINUE TO MONITOR.
--- NOTE | 2021-02-20 02:23 | NUR ---
ROUNDS MADE. PT RESTING IN BED. PT REMINDED ABOUT NPO STATUS. PT VERBALIZED UNDERSTANDING. NO COMPLAINTS AT THIS TIME. WILL CONTINUE TO MONITOR.
[2021-02-20 04:00] VITALS: BP 149/76
--- NOTE | 2021-02-20 04:24 | NUR ---
VS STABLE. PT KEPT ON NPO. PT DENIES ANY PAIN OR DISCOMFORT. NO REQUESTS MADE AT THIS TIME.
[2021-02-20] MEDS: PIPERACILLIN/TAZOBACTAM 2.25 GM in DEXTROSE 5% 50 ML IV SCH ×3 (05:55→21:24)
[2021-02-20] MEDS: BLOOD GLUCOSE MONITORING 1 DEV DEV FS SCH ×4 (06:43→21:24)
[2021-02-20] MEDS: INSULIN LISPRO SLIDING SCALE 100 UNITS/ML VIAL SUBQ PRN ×3 (06:44→21:27)
--- NOTE | 2021-02-20 06:44 | NUR ---
blood sugar 168. insulin coverage not given. pt on npo status.
[2021-02-20 06:46] LABS: BASOPHILS # (AUTO) 0.1 K/uL (0.00-0.22); BASOPHILS % (AUTO) 0.6 % (0.0-2.0); EOSINOPHILS # (AUTO) 0.2 K/uL (0-0.4); EOSINOPHILS % (AUTO) 1.5 % (0.0-4.0); HEMATOCRIT 25.1 % (36-52); HEMOGLOBIN 8.2 g/dL (12.0-18.0); LYMPHOCYTES # (AUTO) 1.6 K/uL (2.0-11.5); LYMPHOCYTES % (AUTO) 10.3 % (20.5-51.1); MEAN CORPUSCULAR HEMOGLOBIN 30 pg (27-31); MEAN CORPUSCULAR HGB CONC 33 g/dL (33-37); MEAN CORPUSCULAR VOLUME 91.3 fL (80-94); MONOCYTES # (AUTO) 1.1 K/uL (0.8-1.0); MONOCYTES % (AUTO) 6.8 % (1.7-9.3); NEUTROPHILS # (AUTO) 12.6 K/uL (1.8-7.7); NEUTROPHILS % (AUTO) 80.8 % (42.2-75.2); PLATELET COUNT (AUTO) 505 K/uL (140-450); RED BLOOD CELL COUNT(AUTO) 2.75 MIL/uL (4.20-6.10); RED CELL DISTRIBUTION WIDTH 14.9 % (11.6-13.7); WHITE BLOOD COUNT (AUTO) 15.6 K/uL (4.8-10.8)
[2021-02-20 07:07] LABS: ANION GAP 14.1 (8-16); CARBON DIOXIDE 27.5 mmol/L (21-32); POTASSIUM 3.6 mmol/L (3.5-5.1)
[2021-02-20 07:09] LABS: PROTHROMBIN TIME 11.2 secs (10.8-13.4)
[2021-02-20 07:32] LABS: CREATININE 6.9 mg/dL (0.6-1.3)
--- NOTE | 2021-02-20 07:37 | NUR ---
report given to day shift nurse for continuity of care
[2021-02-20] MEDS: INSULIN LANTUS 100 UNITS/ML 10 ML VIAL SUBQ SCH (14:00)
[2021-02-20] MEDS: CALCIUM ACETATE 667 MG TAB PO SCH ×3 (15:19→18:25)
[2021-02-20] MEDS: DOCUSATE SODIUM 100 MG GELCAP PO SCH (15:24)
[2021-02-20] MEDS: FUROSEMIDE 20 MG TAB PO SCH (15:25)
[2021-02-20] MEDS: amLODIPine 5 MG TAB PO SCH (15:26)
--- NOTE | 2021-02-20 16:43 | NUR ---
PATIENT TO GO TO SURGERY TODAY FOR LT FOOT SURGERY. DR RAMOS CALLED EARLY THIS AM AT BEGINNING OF SHIFT TO CHECK ON LABS AND PATIENTS STATUS. GIVEN ALL LAB RESULTS AND INFORMED DR RAMOS DIALYSIS HERE TO DO PATIENTS ROUTINE DIALYSIS. patient not yet connected to dialysis machine to start procedure. No orders to hold procedure at this time. Dr Kumarw her on floor following call from Dr Ramos unsure at this time if patient to go to surgery today. orders to continue to keep patient NPO for now. orders in place for dialysis today. Dialysis nurse her to get patient started on procedure. OR Procedures cancelled today will reschedule for per Dr Ramos conversation with family. spoke also to anesthesiologist who later explained procedure to be done Mon
[2021-02-20 20:00] VITALS: BP 127/61
--- NOTE | 2021-02-20 21:24 | NUR ---
VS STABLE. SCHEDULED MEDS GIVEN ORDERED. BLOOD SUGAR 166, INSULIN COVERAGE GIVEN ORDERED. PT DENIES ANY PAIN OR DISCOMFORT. NO REQUESTS MADE. WILL CONTINUE TO MONITOR.
--- NOTE | 2021-02-20 22:19 | NUR ---
PT IN BED WATCHING TV. PT DENIES ANY PAIN OR DISCOMFORT. NO REQUESTS MADE AT THIS TIME. CALL LIGHT WITHIN REACH. WILL CONTINUE TO MONITOR.
--- NOTE | 2021-02-21 00:13 | NUR ---
ASLEEP. VISIBLE CHEST RISE AND FALL NOTED. NO S/SX OF PAIN OR DISCOMFORT NOTED. SAFETY MEASURES IN PLACE. CALL LIGHT WITHIN REACH. WILL CONTINUE TO MONITOR.
--- NOTE | 2021-02-21 02:23 | NUR ---
ASLEEP. PT NOT IN DISTRESS. NO S/SX OF DISCOMFORT NOTED. PT KEPT COMFORTABLE. CALL LIGHT WITHIN REACH. WILL CONTINUE TO MONITOR.
[2021-02-21 04:00] VITALS: BP 128/68
--- NOTE | 2021-02-21 04:23 | NUR ---
VS STABLE. PT NOT IN DISTRESS. DENIES ANY PAIN OR DISCOMFORT. NO REQUESTS MADE. CALL LIGHT WITHIN REACH. WILL CONTINUE TO MONITOR.
[2021-02-21] MEDS: PIPERACILLIN/TAZOBACTAM 2.25 GM in DEXTROSE 5% 50 ML IV SCH ×3 (04:36→21:55)
[2021-02-21] MEDS: BLOOD GLUCOSE MONITORING 1 DEV DEV FS SCH ×4 (06:48→22:04)
--- NOTE | 2021-02-21 07:29 | NUR ---
ENDORSED TO DAY SHIFT NURSE FOR CONTINUITY OF CARE
--- NOTE | 2021-02-21 07:48 | NUR ---
RECEIVED REPORT FROM NIGHT NURSE. INTRODUCED MYSELF TO PT NURSE OF THE DAY. PT IS STABLE. SAFETY PRECAUTIONS ARE IN PLACE. CALL LIGHT IS WITHIN REACH. WILL CONTINUE PLAN OF CARE.
[2021-02-21 08:00] VITALS: BP 131/80
[2021-02-21] MEDS: CALCIUM ACETATE 667 MG TAB PO SCH ×3 (08:09→17:44)
[2021-02-21] MEDS: FUROSEMIDE 20 MG TAB PO SCH (08:09)
[2021-02-21] MEDS: DOCUSATE SODIUM 100 MG GELCAP PO SCH (08:10)
[2021-02-21] MEDS: amLODIPine 5 MG TAB PO SCH (08:10)
[2021-02-21] MEDS: INSULIN LANTUS 100 UNITS/ML 10 ML VIAL SUBQ SCH (08:25)
--- NOTE | 2021-02-21 08:29 | NUR ---
ADMINISTERED SCHEDULED MEDICATIONS PER MD ORDER. B/P WAS 131/80, HR: 93. BG 142MG/DL. EXPLAINED MEDICATIONS MOA AND SIDE EFFECTS. PT VERBALIZED UNDERSTANDING. PT IS NOT IN ACUTE DISTRESS. HE IS WATCHING TV AND IS NOT COMPLAINING OF ANY PAIN. CALL LIGHT IS WITHIN REACH. SAFETY PRECAUTIONS ARE IN PLACE. WILL CONTINUE PLAN OF CARE.
--- NOTE | 2021-02-21 08:34 | NUR ---
CALLED TO PLACE AN ORDER FOR DAILY CBC.
[2021-02-21 09:03] LABS: BASOPHILS # (AUTO) 0.1 K/uL (0.00-0.22); BASOPHILS % (AUTO) 0.9 % (0.0-2.0); EOSINOPHILS # (AUTO) 0.2 K/uL (0-0.4); EOSINOPHILS % (AUTO) 1.5 % (0.0-4.0); HEMATOCRIT 23.9 % (36-52); HEMOGLOBIN 7.9 g/dL (12.0-18.0); LYMPHOCYTES # (AUTO) 1.6 K/uL (2.0-11.5); LYMPHOCYTES % (AUTO) 10.7 % (20.5-51.1); MEAN CORPUSCULAR HEMOGLOBIN 30 pg (27-31); MEAN CORPUSCULAR HGB CONC 33 g/dL (33-37); MEAN CORPUSCULAR VOLUME 90.3 fL (80-94); MONOCYTES # (AUTO) 1.1 K/uL (0.8-1.0); MONOCYTES % (AUTO) 7.7 % (1.7-9.3); NEUTROPHILS # (AUTO) 11.7 K/uL (1.8-7.7); NEUTROPHILS % (AUTO) 79.2 % (42.2-75.2); PLATELET COUNT (AUTO) 498 K/uL (140-450); RED BLOOD CELL COUNT(AUTO) 2.64 MIL/uL (4.20-6.10); RED CELL DISTRIBUTION WIDTH 14.9 % (11.6-13.7); WHITE BLOOD COUNT (AUTO) 14.7 K/uL (4.8-10.8)
[2021-02-21] MEDS: INSULIN LISPRO SLIDING SCALE 100 UNITS/ML VIAL SUBQ PRN ×3 (11:15→23:05)
--- NOTE | 2021-02-21 11:18 | NUR ---
ADMINISTERED 2 UNITS OF HUMALOG SC FOR BLOOD SUGAR OF 181. EDUCATED PT ON SIGNS AND SYMPTOMS OF HYPOGLYCEMIA. PT VERBALIZED UNDERSTANDING. PT IS WATCHING TV AND DOES NOT APPEAR TO BE UNDER DISTRESS. SAFETY PRECAUTIONS ARE IN PLACE. CALL LIGHT IS WITHIN REACH. WILL CONTINUE TO MONITOR.
--- NOTE | 2021-02-21 12:05 | NUR ---
ADMINISTERED SCHEDULED MEDICATIONS PER MD ORDER. EDUCATED PT ON MEDICATIONS MOA AND SIDE EFFECTS. PT VERBALIZED UNDERSTANDING. SAFETY PRECAUTIONS ARE IN PLACE. PT IS WATCHING A MOVIE AND IS NOT UNDER APPARENT DISTRESS. CALL LIGHT IS WITHIN REACH. WILL CONTINUE TO MONITOR.
--- NOTE | 2021-02-21 18:00 | NUR ---
APPLIED VERSATILE WOUND PATCH TO AN OPENED BLISTER ON RFA.
--- NOTE | 2021-02-21 19:30 | NUR ---
ENDORSED TO NIGHT NURSE FOR CONTINUITY OF CARE.PT IS STABLE.
[2021-02-21 20:10] VITALS: BP 144/84
[2021-02-22 04:00] VITALS: BP 162/89
[2021-02-22] MEDS: hydrALAZINE 20 MG/ML VIAL IVP PRN (04:50)
[2021-02-22 05:50] VITALS: BP 124/72
[2021-02-22] MEDS: BLOOD GLUCOSE MONITORING 1 DEV DEV FS SCH ×4 (06:07→21:00)
[2021-02-22 06:15] LABS: BASOPHILS # (AUTO) 0.1 K/uL (0.00-0.22); BASOPHILS % (AUTO) 0.8 % (0.0-2.0); EOSINOPHILS # (AUTO) 0.2 K/uL (0-0.4); EOSINOPHILS % (AUTO) 1.6 % (0.0-4.0); HEMATOCRIT 22.6 % (36-52); HEMOGLOBIN 7.5 g/dL (12.0-18.0); LYMPHOCYTES # (AUTO) 1.8 K/uL (2.0-11.5); LYMPHOCYTES % (AUTO) 13.7 % (20.5-51.1); MEAN CORPUSCULAR HEMOGLOBIN 30 pg (27-31); MEAN CORPUSCULAR HGB CONC 33 g/dL (33-37); MONOCYTES # (AUTO) 1.1 K/uL (0.8-1.0); MONOCYTES % (AUTO) 8.5 % (1.7-9.3); NEUTROPHILS # (AUTO) 9.9 K/uL (1.8-7.7); NEUTROPHILS % (AUTO) 75.4 % (42.2-75.2); PLATELET COUNT (AUTO) 520 K/uL (140-450); RED BLOOD CELL COUNT(AUTO) 2.48 MIL/uL (4.20-6.10); RED CELL DISTRIBUTION WIDTH 14.8 % (11.6-13.7); WHITE BLOOD COUNT (AUTO) 13.2 K/uL (4.8-10.8)
[2021-02-22 06:27] LABS: ANION GAP 8.8 (8-16); CARBON DIOXIDE 28.7 mmol/L (21-32); POTASSIUM 3.5 mmol/L (3.5-5.1)
[2021-02-22 06:34] LABS: CREATININE 6.8 mg/dL (0.6-1.3)
[2021-02-22] MEDS: INSULIN LISPRO SLIDING SCALE 100 UNITS/ML VIAL SUBQ PRN ×4 (06:42→22:32)
--- NOTE | 2021-02-22 07:00 | NUR ---
RECEIVED A CALL FROM LAB W/ CRITICAL LAB VALUES- CREAT 6.8/ BUN 66, PT IS A HD PT RECEIVES HD M-W-F. WILL INFORM STRATEGIC ALLIANCES MANAGER OF FINDINGS.
--- NOTE | 2021-02-22 07:20 | NUR ---
RECEIVE REPORT FROM ELECTRICIAN POWERHOUSE NURSE FOR CONTINUITY OF CARE. PATIENT SLEEPING. BREATHING EVEN AND UNLABORED. PATIENT SLEEPING. ALL SAFETY MEASURES IN PLACE. WILL CONTINUE TO MONITOR.
--- NOTE | 2021-02-22 07:20 | NUR ---
Report to MARLIN RILEY. Nephsameer Martínez office called at [phone], message left with call center for critical lab value. Joy RILEY name given for call retrieving.
[2021-02-22] MEDS: CALCIUM ACETATE 667 MG TAB PO SCH ×3 (09:39→17:54)
[2021-02-22] MEDS: DOCUSATE SODIUM 100 MG GELCAP PO SCH (09:39)
[2021-02-22] MEDS: FUROSEMIDE 20 MG TAB PO SCH (09:39)
[2021-02-22] MEDS: amLODIPine 5 MG TAB PO SCH (09:40)
[2021-02-22] MEDS: INSULIN LANTUS 100 UNITS/ML 10 ML VIAL SUBQ SCH (09:47)
--- NOTE | 2021-02-22 09:47 | NUR ---
PATIENT AWAKE. NO ACUTE DISTRESS NOTED. ROUTINE MEDICATION GIVEN. ALL SAFETY MEASURES IN PLACE. WILL CONTINUE TO MONITOR.
[2021-02-22] MEDS ORDERED: CRUSHER, PILL MC ONE (09:50)
--- NOTE | 2021-02-22 10:55 | NUR ---
DR. LEUNG (NEPHRO) REQUEST FOR HD WITH 2 UNITS OF BLOOD. WILL CARRY OUT ORDERS AND NOTIFY DIALYSIS NURSE.
--- NOTE | 2021-02-22 12:45 | NUR ---
DIALYSIS NURSE STATE THAT SHE IS NOT ABLE TO DO HD DUE TO LINE BE OCCLUDED. DR. LEUNG NOTIFIED REQUEST FOR ONE UNIT OF BLOOD TO BE GIVEN. WILL CARRY OUT ORDERS
--- NOTE | 2021-02-22 14:45 | NUR ---
PATIENT BLOOD STARTED. PATIENT STABLE. NO ACUTE DISTRESS NOTED. VS STABLE. ALL SAFETY MEASURES IN PLACE. WILL CONTINUE TO MONITOR.
[2021-02-22 16:00] VITALS: BP 134/60
--- NOTE | 2021-02-22 17:00 | NUR ---
PATIENT AWAKE. BREATHING EVEN AND UNLABORED. BLOOD CONTINUE TO RUN. NO REACTION NOTED. AT BEDSIDE. ALL SAFETY MEASURES IN PLACE. WILL CONTINUE TO MONITOR.
--- NOTE | 2021-02-22 19:42 | NUR ---
ENDORSED REPORT FOR CONTINUITY OF CARE. PATIENT STABLE. FAMILY AT BEDSIDE. ALL SAFETY MEASURES IN PLACE.
[2021-02-23 02:17] VITALS: BP 145/78
[2021-02-23 03:59] LABS: BASOPHILS # (AUTO) 0.1 K/uL (0.00-0.22); EOSINOPHILS # (AUTO) 0.2 K/uL (0-0.4); EOSINOPHILS % (AUTO) 1.7 % (0.0-4.0); HEMATOCRIT 24.8 % (36-52); HEMOGLOBIN 8.5 g/dL (12.0-18.0); LYMPHOCYTES # (AUTO) 2.1 K/uL (2.0-11.5); LYMPHOCYTES % (AUTO) 16.4 % (20.5-51.1); MEAN CORPUSCULAR HEMOGLOBIN 31 pg (27-31); MEAN CORPUSCULAR HGB CONC 34 g/dL (33-37); MEAN CORPUSCULAR VOLUME 90.2 fL (80-94); MONOCYTES # (AUTO) 1.1 K/uL (0.8-1.0); MONOCYTES % (AUTO) 8.8 % (1.7-9.3); NEUTROPHILS # (AUTO) 9.4 K/uL (1.8-7.7); NEUTROPHILS % (AUTO) 72.1 % (42.2-75.2); PLATELET COUNT (AUTO) 483 K/uL (140-450); RED BLOOD CELL COUNT(AUTO) 2.75 MIL/uL (4.20-6.10); RED CELL DISTRIBUTION WIDTH 14.9 % (11.6-13.7)
[2021-02-23 04:08] LABS: ANION GAP 10.1 (8-16); CARBON DIOXIDE 29.7 mmol/L (21-32); POTASSIUM 3.8 mmol/L (3.5-5.1)
[2021-02-23 04:28] LABS: CREATININE 7.7 mg/dL (0.6-1.3)
[2021-02-23] MEDS: BLOOD GLUCOSE MONITORING 1 DEV DEV FS SCH ×4 (07:05→21:28)
--- NOTE | 2021-02-23 07:20 | NUR ---
RECEIVE REPORT FROM PAPER BAG MAKER NURSE FOR CONTINUITY OF CARE. PATIENT AWAKE. ALL SAFETY MEASURES IN PLACE. WILL CONTINUE TO MONITOR.
[2021-02-23] MEDS ORDERED: BUPIVACAINE-MPF 0.5% 30 ML VIAL INJ ONE (07:25)
[2021-02-23] MEDS ORDERED: KETAMINE 500 MG/5 ML VIAL ONE (07:25)
[2021-02-23] MEDS ORDERED: HYDROGEN PEROXIDE 3% 240 ML BTL TP ONE (07:25)
--- NOTE | 2021-02-23 07:42 | NUR ---
PATIENT TAKEN TO OR FOR PROCEDURE. TRANSPORTED BY OR NURSE.
[2021-02-23] MEDS ORDERED: MIDAZOLAM 2 MG/2 ML VIAL ONE (07:57)
[2021-02-23] MEDS ORDERED: PIPERACILLIN/TAZOBACTAM 3.375 GM VIAL IV ONE (07:59)
[2021-02-23 08:00] VITALS: BP 145/90
[2021-02-23] MEDS: CALCIUM ACETATE 667 MG TAB PO SCH ×3 (08:00→16:47)
[2021-02-23] MEDS ORDERED: MAG SULF 2000 MG/WATER PREMIX 50 ML IV SCH (08:00)
--- NOTE | 2021-02-23 08:45 | NUR ---
ATTEMPTED TO SEE PATIENT FOR PHYSICAL THERAPY TREATMENT HOWEVER PATIENT TRANSFERRED TO O.R. FOR LEFT TMA AND TUNNEL CATH PLACEMENT. WILL FOLLOW UP IF APPROPRIATE; RN AWARE.
[2021-02-23] MEDS: INSULIN LANTUS 100 UNITS/ML 10 ML VIAL SUBQ SCH (09:00)
[2021-02-23] MEDS: amLODIPine 5 MG TAB PO SCH (09:00)
[2021-02-23] MEDS: FUROSEMIDE 20 MG TAB PO SCH (09:00)
[2021-02-23] MEDS: DOCUSATE SODIUM 100 MG GELCAP PO SCH (09:00)
--- NOTE | 2021-02-23 09:10 | NUR ---
PATIENT OFF UNIT FOR SURGICAL PROCEDURE. ROUTINE MEDICATION NO GIVEN.
[2021-02-23] MEDS ORDERED: BUPIVACAINE-MPF/EPI 0.25% 30 ML VIAL INJ ONE (10:59)
[2021-02-23] MEDS ORDERED: LIDOCAINE 1% 500 MG/50 ML VIAL ONE (10:59)
--- NOTE | 2021-02-23 12:30 | NUR ---
PATIENT RETURN TO UNIT FROM OR SURGICAL PROCEDURE. PATIENT NOTED TO BE DROWSY. VS STABLE. PER OR NURSE PATIENT HAD TOES REMOVED FROM LEFT FOOT AND TUNNEL CATHETER TO RIGHT CHEST. ALL SAFETY MEASURES IN PLACE. WILL CONTINUE TO MONITOR.
[2021-02-23 13:00] LABS: BASOPHILS # (AUTO) 0.1 K/uL (0.00-0.22); BASOPHILS % (AUTO) 0.8 % (0.0-2.0); EOSINOPHILS # (AUTO) 0.1 K/uL (0-0.4); HEMATOCRIT 24.5 % (36-52); HEMOGLOBIN 8.2 g/dL (12.0-18.0); LYMPHOCYTES # (AUTO) 1.4 K/uL (2.0-11.5); LYMPHOCYTES % (AUTO) 13.5 % (20.5-51.1); MEAN CORPUSCULAR HEMOGLOBIN 31 pg (27-31); MEAN CORPUSCULAR HGB CONC 34 g/dL (33-37); MEAN CORPUSCULAR VOLUME 91.7 fL (80-94); MONOCYTES # (AUTO) 0.8 K/uL (0.8-1.0); MONOCYTES % (AUTO) 7.6 % (1.7-9.3); NEUTROPHILS # (AUTO) 8.3 K/uL (1.8-7.7); NEUTROPHILS % (AUTO) 77.1 % (42.2-75.2); PLATELET COUNT (AUTO) 468 K/uL (140-450); RED BLOOD CELL COUNT(AUTO) 2.67 MIL/uL (4.20-6.10); WHITE BLOOD COUNT (AUTO) 10.7 K/uL (4.8-10.8)
--- NOTE | 2021-02-23 13:00 | NUR ---
DIALYSIS NURSE AT BEDSIDE. PATIENT SCHEDULED FOR HD TODAY. PATIENT AWAKE STILL CONTINUE TO BE DROWSY FROM SURGERY. ALL SAFETY MEASURES IN PLACE. WILL CONTINUE TO MONITOR.
--- NOTE | 2021-02-23 14:35 | NUR ---
PATIENT AWAKE. NO ACUTE DISTRESS NOTED. DIALYSIS NURSE AT BEDSIDE. ALL SAFETY MEASURES IN PLACE. WILL CONTINUE TO MONITOR.
[2021-02-23 16:00] VITALS: BP 117/74
--- NOTE | 2021-02-23 16:19 | NUR ---
PATIENT AWAKE AND ALERT. NO ACUTE DISTRESS NOTED. FAMILY AT BEDSIDE. ALL SAFETY MEASURES IN PLACE. WILL CONTINUE TO MONITOR.
[2021-02-23] MEDS ORDERED: VANCOMYCIN 1,000 MG in DEXTROSE 5% 250 ML IV SCH (17:00)
--- NOTE | 2021-02-23 18:10 | NUR ---
PATIENT SLEEPING. NO ACUTE DISTRESS NOTED. ALL SAFETY MEASURES IN PLACE. WILL CONTINUE TO MONITOR.
--- NOTE | 2021-02-23 19:15 | NUR ---
ENDORSED TO GATE TENDER NURSE FOR CONTINUITY OF CARE.. PATIENT STABLE. ALL SAFETY MEASURES IN PLACE.
[2021-02-23 20:00] VITALS: BP 124/70
--- NOTE | 2021-02-23 20:15 | NUR ---
PT IS IN THE BED TAKING REST.FAMILY AT BEDSIDE.CONDITION STABLE.NO DISTRESS NOTED NOW.HAS HD CATHETER ON RT.CHEST SL PATENT IN LT FA.NO C/O PAIN NOW.WILL CONT.MONITORING.
[2021-02-23] MEDS: INSULIN LISPRO SLIDING SCALE 100 UNITS/ML VIAL SUBQ PRN (21:23)
--- NOTE | 2021-02-24 02:00 | NUR ---
WATCHING TV.DENIED PAIN.CONDITION STABLE.
[2021-02-24 04:00] VITALS: BP 126/72
[2021-02-24 06:15] LABS: BASOPHILS # (AUTO) 0.1 K/uL (0.00-0.22); EOSINOPHILS # (AUTO) 0.1 K/uL (0-0.4); MONOCYTES # (AUTO) 1.3 K/uL (0.8-1.0)
--- NOTE | 2021-02-24 06:45 | NUR ---
HW=898 NO COVERAGE NEEDED.SL PATENT.FLUSHED WELL.VS STABLE.
[2021-02-24] MEDS: BLOOD GLUCOSE MONITORING 1 DEV DEV FS SCH ×4 (06:46→21:09)
[2021-02-24 06:47] LABS: BASOPHILS % (AUTO) 0.7 % (0.0-2.0); EOSINOPHILS % (AUTO) 0.5 % (0.0-4.0); HEMOGLOBIN 7.2 g/dL (12.0-18.0); LYMPHOCYTES # (AUTO) 1.4 K/uL (2.0-11.5); LYMPHOCYTES % (AUTO) 9.1 % (20.5-51.1); MEAN CORPUSCULAR HEMOGLOBIN 30 pg (27-31); MEAN CORPUSCULAR HGB CONC 33 g/dL (33-37); MEAN CORPUSCULAR VOLUME 89.9 fL (80-94); MONOCYTES % (AUTO) 8.1 % (1.7-9.3); NEUTROPHILS # (AUTO) 12.6 K/uL (1.8-7.7); NEUTROPHILS % (AUTO) 81.6 % (42.2-75.2); PLATELET COUNT (AUTO) 425 K/uL (140-450); RED BLOOD CELL COUNT(AUTO) 2.45 MIL/uL (4.20-6.10); RED CELL DISTRIBUTION WIDTH 14.8 % (11.6-13.7); WHITE BLOOD COUNT (AUTO) 15.5 K/uL (4.8-10.8)
--- NOTE | 2021-02-24 07:21 | NUR ---
ROUTE DRIVER RESIDENT IS HERE TO CHANGE DRESSING ON LT FOOT.ENDORSED TO AM RN.
--- NOTE | 2021-02-24 07:23 | NUR ---
RECEIVED REPORT FROM NIGHT NURSE PT IS NON AMBULATORY, ON ROOM AIR, AAOX4 RENAL DIET SKIN NON INTACT WITH LEFT FOOT AMPUTATION AND DRESSING CHANGED BY BRAND MARKETING COORDINATOR. LAST BLOOD SUGAR 150 MG/DL NO INSULIN COVERAGE GIVEN.WILL CONTINUE TO MONITOR.
[2021-02-24 08:00] VITALS: BP 122/72
--- NOTE | 2021-02-24 08:45 | NUR ---
ADMINISTERED SCHEDULED MEDICATION CHECK VITAL SIGNS PRIOR TO MEDICATION BP 149/83 IN 103 PATIENT TOLERATED WELL AND NO DISTRESS NOTED.WILL CONTINUE TO MONITOR.
[2021-02-24] MEDS: CALCIUM ACETATE 667 MG TAB PO SCH ×3 (08:46→16:58)
[2021-02-24] MEDS: FUROSEMIDE 20 MG TAB PO SCH (08:48)
[2021-02-24] MEDS: DOCUSATE SODIUM 100 MG GELCAP PO SCH (08:48)
[2021-02-24] MEDS: amLODIPine 5 MG TAB PO SCH (08:49)
[2021-02-24] MEDS: INSULIN LANTUS 100 UNITS/ML 10 ML VIAL SUBQ SCH (08:51)
[2021-02-24] MEDS ORDERED: ACET-9525 PO (10:40)
[2021-02-24] MEDS ORDERED: SULF-58 PO (10:40)
--- NOTE | 2021-02-24 11:30 | NUR ---
BLOOD SUGAR 232 MG/DL INSULIN COVERAGE GIVEN.
[2021-02-24] MEDS: INSULIN LISPRO SLIDING SCALE 100 UNITS/ML VIAL SUBQ PRN ×3 (12:21→21:10)
--- NOTE | 2021-02-24 12:34 | NUR ---
MULTIPLE ATTEMPTS TO SEE PATIENT FOR PHYSICAL THERAPY TREATMENT HOWEVER PATIENT CONTINUES TO REFUSE STATING HE FEELS "TOO TIRED, I HAD NO SLEEP LAST NIGHT". EDUCATED IMPORTANCE OF MOBILITY ALONG WITH NWB PRECAUTIONS. CM ATTEMPTED TO CONVINCE PATIENT TO PERFORM OOB ACTIVITIES WELL HOWEVER PATIENT CONTINUES TO REFUSE. RN AWARE; WILL FOLLOW UP TOMORROW IF APPROPRIATE.
--- NOTE | 2021-02-24 14:00 | NUR ---
MADE ROUNDS PATIENT IS RESTING AND NO DISTRESS NOTED
--- NOTE | 2021-02-24 15:00 | NUR ---
DISCHARGED ORDER PUT ON HOLD WAITING FOR RESERVOIR ENGINEER CLEARANCE AND BODS DEVELOPER.DR ASMITA KEARNEY.
[2021-02-24 16:00] VITALS: BP 141/76
--- NOTE | 2021-02-24 16:30 | NUR ---
BLOOD SUGAR 184 MG/DL INSULIN COVERAGE 2 UNITS GIVEN AND ADMINISTERED SCHEDULED MEDICATION. NO DISTRESS NOTED. WILL CONTINUE TO MONITOR.
--- NOTE | 2021-02-24 16:40 | NUR ---
02/24/21 RD FOLLOW UP COMPLETED PLEASE REFER TO NUTRITION ASSESSMENT UNDER CARE ACTIVITY FOR ESTIMATED NUTRITIONAL NEEDS. 1. CONTINUE CCHO AND RENAL DIET TOLERATED 2. RECOMMEND SULMA BID 3. RD TO FOLLOW-UP 5-7 DAYS, LOW RISK YUE [place], RD
--- NOTE | 2021-02-24 19:14 | NUR ---
ENDORSED TO NIGHT NURSE FOR CONTINUITY OF CARE. PT IS STABLE.
--- NOTE | 2021-02-24 20:00 | NUR ---
RECEIVED BEDSIDE REPORT FROM DAY RN EARLIER REGARDING THE PATIENT FOR CONTINUITY OF CARE. RECEIVED PATIENT A/A/OX4. PATIENT NOT IN ANY DISTRESS AND NO COMPLAIN AT THIS TIME. RT FOOT DRESSING C/D/I. FALL PRECAUTION IMPLEMENTED. REMINDED THE PATIENT NOT TO GET OUT OF BED WITHOUT ASSISTANCE. PT VERBALIZED UNDERSTANDING WITH THE POC. CALL LIGHT WITHIN REACH. WILL CONTINUE POC AND OBSERVATION.
--- NOTE | 2021-02-24 22:00 | NUR ---
DUE MEDS GIVEN ORDERED. PT TOLERATED IT WELL NO ADVERSE DRUG REACTION NOTED AND NO COMPLAIN FROM THE PT. WILL CONTINUE OBSERVATION.
--- NOTE | 2021-02-25 02:00 | NUR ---
PATIENT ASLEEP AT THIS TIME. NOT IN ANY DISTRESS. CALL LIGHT WITHIN REACH.
[2021-02-25 04:00] VITALS: BP 145/81
--- NOTE | 2021-02-25 06:15 | NUR ---
PATIENT STABLE. NO ACUTE EVENT THROUGHOUT THE NIGHT. PATIENT NOT IN ANY DISTRESS AND NO COMPLAIN AT THIS TIME. WILL ENDORSE THE PATIENT TO THE ONCOMING RN FOR CONTINUITY OF CARE.
[2021-02-25] MEDS: BLOOD GLUCOSE MONITORING 1 DEV DEV FS SCH ×4 (06:50→21:31)
[2021-02-25 07:15] LABS: BASOPHILS # (AUTO) 0.1 K/uL (0.00-0.22); BASOPHILS % (AUTO) 0.8 % (0.0-2.0); EOSINOPHILS # (AUTO) 0.1 K/uL (0-0.4); HEMATOCRIT 21.6 % (36-52); HEMOGLOBIN 7.1 g/dL (12.0-18.0); LYMPHOCYTES # (AUTO) 1.6 K/uL (2.0-11.5); LYMPHOCYTES % (AUTO) 11.4 % (20.5-51.1); MEAN CORPUSCULAR HEMOGLOBIN 30 pg (27-31); MEAN CORPUSCULAR HGB CONC 33 g/dL (33-37); MEAN CORPUSCULAR VOLUME 91.4 fL (80-94); MONOCYTES # (AUTO) 1.3 K/uL (0.8-1.0); MONOCYTES % (AUTO) 9.4 % (1.7-9.3); NEUTROPHILS # (AUTO) 10.8 K/uL (1.8-7.7); NEUTROPHILS % (AUTO) 77.4 % (42.2-75.2); PLATELET COUNT (AUTO) 445 K/uL (140-450); RED BLOOD CELL COUNT(AUTO) 2.36 MIL/uL (4.20-6.10); RED CELL DISTRIBUTION WIDTH 14.7 % (11.6-13.7); WHITE BLOOD COUNT (AUTO) 13.9 K/uL (4.8-10.8)
--- NOTE | 2021-02-25 07:30 | NUR ---
RECEIVED REPORT FROM NIGHT NURSE PATIENT IS AWAKE, ON ROOM AIR, AMBULATORY BUT NON WEIGHT BEARING ON THE LEFT FOOT, LAST BLOOD SUGAR 110 MG/DL IV INTACT ON RIGHT HAND AND LEFT FA SALINE LOCK, SKIN NON INTACT, LEFT TOES AMPUTATED, WITH RIGHT IJ TUNNEL CATH. SAFETY MEASURES IN PLACE AND CALL LIGHT WITHIN REACH. WILL CONTINUE TO MONITOR.
[2021-02-25 08:00] VITALS: BP 132/79
--- NOTE | 2021-02-25 08:15 | NUR ---
HEMODIALYSIS ON GOING BP MEDICATIONS HELD. BUSINESS SUPPORT SPECIALIST CLEANED AND CHANGED DRESSING ON THE LEFT FOOT.
[2021-02-25] MEDS: DOCUSATE SODIUM 100 MG GELCAP PO SCH (08:36)
[2021-02-25] MEDS: CALCIUM ACETATE 667 MG TAB PO SCH ×3 (08:37→16:56)
[2021-02-25] MEDS: amLODIPine 5 MG TAB PO SCH (08:39)
--- NOTE | 2021-02-25 08:49 | NUR ---
ADMINISTERED SCHEDULED MEDICATION CHECK VITAL SIGNS PRIOR TO MEDICATION BP 132/79 MO 97 PATIENT TOLERATED WELL.
[2021-02-25] MEDS ORDERED: EPOETIN ALFA-EPBX 10,000 UNITS/ML VIAL SUBQ SCH (09:00)
[2021-02-25] MEDS: INSULIN LANTUS 100 UNITS/ML 10 ML VIAL SUBQ SCH (11:02)
[2021-02-25] MEDS: INSULIN LISPRO SLIDING SCALE 100 UNITS/ML VIAL SUBQ PRN ×2 (11:30→16:55)
--- NOTE | 2021-02-25 11:30 | NUR ---
BLOOD SUGAR 184 MG/DL INSULIN COVERAGE 2 UNITS.WILL CONTINUE TO MONITOR.
--- NOTE | 2021-02-25 12:00 | NUR ---
HEMODIALYSIS COMPLETE OUTPUT OF 2.8 LITERS. VITAL SIGNS STABLE BP 107/63 AR 98.
[2021-02-25] MEDS: FUROSEMIDE 20 MG TAB PO SCH (12:08)
--- NOTE | 2021-02-25 12:11 | NUR ---
ADMINISTERED SCHEDULED MEDICATION PATIENT TOLERATED WELL.
--- NOTE | 2021-02-25 14:00 | NUR ---
RECEIVED REPORT FROM OSVALDO MULLINS FOR CONTINUITY OF CARE. PT IS ALERT AND ORIENTED. PT IS ON HIS PHONE. PT IS ON RA WITH UNLABORED BREATHING. PT IS STABLE. SAFETY MEASURES ARE IN PLACE. WILL CONTINUE TO MONITOR.
--- NOTE | 2021-02-25 14:01 | NUR ---
GAVE REPORT FROM CHAY RILEY FOR CONTINUITY OF CARE.
--- NOTE | 2021-02-25 14:05 | NUR ---
MONET FROM PHYSICAL THERAPIST SAID PT DENIED PHYSICAL THERAPY TODAY. WHEN I ASKED PT HE STATES "YEAH NAH I DIDN'T FEEL LIKE IT TODAY". SAFETY MEASURES ARE IN PLACE AND WILL CONTINUE TO MONITOR.
--- NOTE | 2021-02-25 14:39 | NUR ---
ATTEMPTED TO SEE PATIENT FOR PHYSICAL THERAPY HOWEVER PATIENT REFUSED STATING " I AM TOO TIRED AFTER FINISHING DIALYSIS". PATIENT REPORTS HE HAS BEEN AMBULATING TO RESTROOM WITH TREY SOTO. RN AWARE; WILL FOLLOW UP IF APPROPRIATE. Addendum: 02/25/21 at 1441 by Elaina Bañuelos PT MIRI SOTO
--- NOTE | 2021-02-25 15:39 | NUR ---
PT IS LAYING IN BED WATCHING A SHOW ON HIS PHONE. PT IS ON RA WITH UNLABORED BREATHING. PT STATES NO PAIN. CALL LIGHT WITHIN REACH. SAFETY MEASURES ARE IN PLACE. WILL CONTINUE TO MONITOR.
--- NOTE | 2021-02-25 16:55 | NUR ---
PT BLOOD SUGAR READING WAS 196. WILL BE ADMINISTERING INSULIN. MEDICATION EDUCATION WAS PROVIDED. PT VERBALIZED UNDERSTANDING. PT IS IN BED WITH AT BESIDE. PT IS STABLE. CALL LIGHT WITHIN REACH. WILL CONTINUE TO MONITOR.
--- NOTE | 2021-02-25 18:30 | NUR ---
PT IS SITTING IN BED ON HIS PHONE. PT IS ON RA WITH UNLABORED BREATHING. FOOD TRAY IS BEEN PLACE FOR PT TO EAT DINNER. PT DENIES ANY PAIN. PT IS STABLE. CALL LIGHT WITHIN REACH. WILL CONTINUE TO MONITOR.
--- NOTE | 2021-02-25 19:15 | NUR ---
GAVE REPORT TO RN WOUND CARE NURSE FOR CONTINUITY OF CARE. PT IS STABLE.
[2021-02-25 20:21] VITALS: BP 135/74
[2021-02-26 05:17] VITALS: BP 129/68
--- NOTE | 2021-02-26 05:20 | NUR ---
I RECEIVED PT IN BED ALERT ORIENTED, DENIED PAIN , VSS,,DRESSING ON LEFT FOOTCLEAN AND DRY,ON RA CLEAR LUNGS,RT FORE ARM SL INTACT HIS BLOOD SUGAR WASNORMALNO COVERAGE HE REQUESTED FOR A PINNA BUTTER SANDWICTH AND WAS GIVEN, HE SLEPTWELL.
[2021-02-26] MEDS: BLOOD GLUCOSE MONITORING 1 DEV DEV FS SCH ×2 (06:46→11:39)
--- NOTE | 2021-02-26 07:30 | NUR ---
Received report from night nurse. first initial contact with pt. introduced myself as day nurse. Safety precautions are in place. Call light is within reach. Will continue plan of care.
[2021-02-26] MEDS: amLODIPine 5 MG TAB PO SCH (08:22)
[2021-02-26] MEDS: CALCIUM ACETATE 667 MG TAB PO SCH ×2 (08:22→12:15)
[2021-02-26] MEDS: DOCUSATE SODIUM 100 MG GELCAP PO SCH (08:22)
[2021-02-26] MEDS: FUROSEMIDE 20 MG TAB PO SCH (08:23)
[2021-02-26] MEDS: INSULIN LANTUS 100 UNITS/ML 10 ML VIAL SUBQ SCH (08:29)
--- NOTE | 2021-02-26 08:45 | NUR ---
ADMINISTERED SCHEDULED MEDICATIONS PER MD ORDER. BP WAS 145/86, KS:92. EDUCATED PT ON MEDICATIONS MOA AND SIDE EFFECTS. EDUCATED PT ON S&S OF HYPER AND HYPOGLYCEMIA. PT VERBALIZED UNDERSTANDING. PT DOES NOT APPEAR TO BE IN ANY ACUTE DISTRESS. PT IS WATCHING TELEVISION COMFORTABLY. CALL LIGHT IS WITHIN REACH. SAFETY PRECAUTIONS ARE IN PLACE. WILL CONTINUE TO MONITOR.
[2021-02-26] MEDS: INSULIN LISPRO SLIDING SCALE 100 UNITS/ML VIAL SUBQ PRN (11:40)
--- NOTE | 2021-02-26 11:43 | NUR ---
ASSESSED BLOOD SUGAR AND IT WAS 206MG/DL. ADMINISTERED 4 UNITS OF HUMALOG PER SLIDING SCALE. PT WAS EDUCATED ON MEDICATIONS MOA AND SIDE EFFECTS. PT VERBALIZED UNDERSTANDING. PT IS WATCHING TELEVISION AND NOS SIGNS OF ACUTE DISTRESS ARE NOTED. WILL CONTINUE TO MONITOR.
--- NOTE | 2021-02-26 12:16 | NUR ---
ADMINISTERED SCHEDULED MEDICATIONS PER MD ORDER. EDUCATED PT ON MEDICATIONS MOA AND SIDE EFFECTS. PT VERBALIZED UNDERSTANDING. PT IS WATCHING TV AND IS NOT COMPLAINING OF ANY PAIN. CALL LIGHT IS WITHIN REACH. WILL CONTINUE TO MONITOR.
[2021-02-26 14:24] VITALS: BP 145/86
--- NOTE | 2021-02-26 16:01 | NUR ---
DISCHARGED PT HOME. PROVIDED PT WITH DISCHARGE PACKET INSTRUCTIONS. EDUCATED PT ON THE IMPORTANCE OF FOLLOWING UP WITH PCP WITHIN 7 DAYS AFTER DISCHARGE. PT WAS GIVEN WOUND CARE MATERIALS PER CONSTRUCTION QUALITY CONTROL MANAGERHOSPITALITY TEAM MEMBER. PT WAS EDUCATED ON MEDICATIONS PRESCRIPTION AND MOA AND SIDE EFFECTS. PT WAS EDUCATED ON SIGNS AND SYMPTOMS OF EMERGENCY AND WHEN TO SEEK MEDICAL HELP. PT WAS EDUCATED ON DISEASE MANAGEMENT. IV CATHETER WAS REMOVED AND IT WAS INTACT. AN 2X2 GAUZE WAS APPLIED. NO MAJOR BLEEDING WAS NOTED. PT WAS ABLE TO DRESS HIMSELF. PT'S PICKED UP PT FROM FRONT LOBBY. PT WAS WHEELED DOWN THE LOBBY BY WHEELCHAIR. ID ARM BAND WAS REMOVED. WILL END PLAN OF CARE. PT IS STABLE.
== END 2021-02-26 16:05 | disposition home health service (06) | DRG 853 ==
LOC: MED 22:04 → MTU 02-13 02:58
PROVIDERS: ADMIT Hospitalist; ATTEND Hospitalist
PROC: 30233N1 Transfusion of Nonautologous Red Blood Cells into Peripheral Vein, Percutaneous Approach (ICD-10-PCS; 2021-02-13)
PROC: 5A1D70Z Performance of Urinary Filtration, Intermittent, Less than 6 Hours Per Day (ICD-10-PCS; 2021-02-13)
PROC: 02HV33Z Insertion of Infusion Device into Superior Vena Cava, Percutaneous Approach (ICD-10-PCS; 2021-02-13)
PROC: B548ZZA Ultrasonography of Superior Vena Cava, Guidance (ICD-10-PCS; 2021-02-13)
PROC: 5A1D70Z Performance of Urinary Filtration, Intermittent, Less than 6 Hours Per Day (ICD-10-PCS; 2021-02-14)
PROC: 0Y6N0ZB Detachment at Left Foot, Partial 2nd Ray, Open Approach (ICD-10-PCS; principal; 2021-02-14 09:00)
PROC: 5A1D70Z Performance of Urinary Filtration, Intermittent, Less than 6 Hours Per Day (ICD-10-PCS; 2021-02-15)
PROC: 0Y6N0Z9 Detachment at Left Foot, Partial 1st Ray, Open Approach (ICD-10-PCS; 2021-02-16)
PROC: 0Y6N0ZC Detachment at Left Foot, Partial 3rd Ray, Open Approach (ICD-10-PCS; 2021-02-16)
PROC: 5A1D70Z Performance of Urinary Filtration, Intermittent, Less than 6 Hours Per Day (ICD-10-PCS; 2021-02-17)
PROC: 5A1D70Z Performance of Urinary Filtration, Intermittent, Less than 6 Hours Per Day (ICD-10-PCS; 2021-02-19)
PROC: 5A1D70Z Performance of Urinary Filtration, Intermittent, Less than 6 Hours Per Day (ICD-10-PCS; 2021-02-22)
PROC: 0Y6N0Z9 Detachment at Left Foot, Partial 1st Ray, Open Approach (ICD-10-PCS; 2021-02-23)
PROC: 0Y6N0ZB Detachment at Left Foot, Partial 2nd Ray, Open Approach (ICD-10-PCS; 2021-02-23)
PROC: 0Y6N0ZC Detachment at Left Foot, Partial 3rd Ray, Open Approach (ICD-10-PCS; 2021-02-23)
PROC: 0Y6N0ZD Detachment at Left Foot, Partial 4th Ray, Open Approach (ICD-10-PCS; 2021-02-23)
PROC: 0Y6N0ZF Detachment at Left Foot, Partial 5th Ray, Open Approach (ICD-10-PCS; 2021-02-23)
PROC: 5A1D70Z Performance of Urinary Filtration, Intermittent, Less than 6 Hours Per Day (ICD-10-PCS; 2021-02-23)
PROC: 5A1D70Z Performance of Urinary Filtration, Intermittent, Less than 6 Hours Per Day (ICD-10-PCS; 2021-02-24)
PROC: 02PYX3Z Removal of Infusion Device from Great Vessel, External Approach (ICD-10-PCS; 2021-02-24)
PROC: 0JH63XZ Insertion of Tunneled Vascular Access Device into Chest Subcutaneous Tissue and Fascia, Percutaneous Approach (ICD-10-PCS; 2021-02-24)
PROC: 02HV33Z Insertion of Infusion Device into Superior Vena Cava, Percutaneous Approach (ICD-10-PCS; 2021-02-24)
PROC: B518ZZA Fluoroscopy of Superior Vena Cava, Guidance (ICD-10-PCS; 2021-02-24)
PROC: 5A1D70Z Performance of Urinary Filtration, Intermittent, Less than 6 Hours Per Day (ICD-10-PCS; 2021-02-26)
DX: A41.9 Sepsis, unspecified organism (principal); N18.6 End stage renal disease; A48.0 Gas gangrene; E11.52 Type 2 diabetes mellitus with diabetic peripheral angiopathy with gangrene; N17.9 Acute kidney failure, unspecified; E87.1 Hypo-osmolality and hyponatremia; M86.8X7 Other osteomyelitis, ankle and foot; I12.0 Hypertensive chronic kidney disease with stage 5 chronic kidney disease or end stage renal disease; E11.42 Type 2 diabetes mellitus with diabetic polyneuropathy; L03.032 Cellulitis of left toe; Z20.822 Contact with and (suspected) exposure to COVID-19; S92.912A Unspecified fracture of left toe(s), initial encounter for closed fracture; X58.XXXA Exposure to other specified factors, initial encounter; E78.5 Hyperlipidemia, unspecified; E11.69 Type 2 diabetes mellitus with other specified complication; E83.51 Hypocalcemia; D64.9 Anemia, unspecified; E11.22 Type 2 diabetes mellitus with diabetic chronic kidney disease; Y93.89 Activity, other specified; Y92.89 Other specified places as the place of occurrence of the external cause; Y99.8 Other external cause status; Z91.19 Patient's noncompliance with other medical treatment and regimen; Z99.2 Dependence on renal dialysis
CPT/HCPCS: 36415; 36430; 71045; 71046; 73630; 73660; 80048; 80053; 80202; 82306; 82948; 83036; 83605; 83735; 83880; 84100; 84484; 85025; 85610; 85730; 86592; 86704; 86706; 86803; 86886; 86900; 86901; 86920; 87040; 87070; 87075; 87081; 87186; 87205; 87340; 88304; 88305; 88311; 93005; 93922; 93925; 96361; 96365; 96367; 97112; 97116; 97530; 99285; C1894; J0360; J0696; J1100; J1644; J1815; J2001; J2150; J2250; J2405; J2543; J2704; J3010; J3370; J3475; J3490; J7060; J7120; P9016; Q5106

== ENCOUNTER 2021-03-05 18:08 | Inpatient (IN) | payer BC, SELFPAY ==
[~2021-03-05] VITALS: Ht 180.3 cm; Wt 74.8 kg
[~2021-03-05 18:08] MED LIST: ACET-9525 PO; AMLO2.5T PO; ERGO-30 PO; FURO-572 PO; INSU100S22 SUBQ; SULF-58 PO
[2021-03-05 18:17] VITALS: BP 129/76
--- NOTE | 2021-03-05 18:25 | NUR ---
Patient wheelchair assisted to bed 04.
--- NOTE | 2021-03-05 18:45 | NUR ---
Dr. Helton is evaluating patient at bedside.
--- NOTE | 2021-03-05 18:45 | NUR ---
50 y/o M BIB with c/c wound recheck s/p Left digits amputation 1 week ago. Patient A&Ox4, wheelchair assisted, reports seen at Dr. Ramos's office @ 4PM today for wound recheck and referred to ER for admission due to Left foot not healing well. Patient states 3 previous surgeries to left toe. Patient presents with gauze wrap to L foot and reports amputation of digits 1-5. Patient has no medical complaint; denies any fever, chills, N/V/D, chest pain, dizziness, headache. Dialsyis port to R upper chest; pt completed full 3.5 hr treatment yesterday. Pt placed into gown and quality assurance monitor body. Bed locked in lowest position, side rails x 1, call light in reach. PMH: DM, ESRD, dialysis MWF Meds: Insulin lantus 20 Units, amlodipine 2.5mg, Vitamin D 1.25mg /5000 Units
--- NOTE | 2021-03-05 18:47 | NUR ---
Blood cultures and sample collected, handed to CPT Sylvia at ER bedside.
[2021-03-05] MEDS ORDERED: PIPERACILLIN/TAZOBACTAM 3.375 GM in DEXTROSE 5% 50 ML IV ONE (18:55)
[2021-03-05] MEDS ORDERED: VANCOMYCIN 1,000 MG in DEXTROSE 5% 250 ML IV ONE (18:55)
--- NOTE | 2021-03-05 19:20 | NUR ---
REPORT TAKEN FROM OSVALDO CARLTON FOR CONTINUATION OF PATIENT CARE AT THIS TIME.
--- NOTE | 2021-03-05 19:20 | NUR ---
Report and transfer of care endorsed to OSVALDO Prasad.
--- NOTE | 2021-03-05 19:25 | NUR ---
Lab at bedside
[2021-03-05] MEDS ORDERED: PIPERACILLIN/TAZOBACTAM 3.375 GM VIAL IV ONE (19:29)
--- NOTE | 2021-03-05 19:31 | NUR ---
Peg morton swab collected, handed to CPT Sylvia at ER bedside.
--- NOTE | 2021-03-05 19:35 | NUR ---
PATIENT LAYING IN BED LOCKED IN LOWEST POSITION X1 SIDE RAIL UP. BREATHING EVEN AND UNLABORED. PATIENT DENIES PAIN. WOUND TO L FOOR LIGHTLY DRESSED, NO BLEEDING. PATIENT CONNECTED TO MONITOR W VSS. AT BEDSIDE.
[2021-03-05 19:52] LABS: PROTHROMBIN TIME 10.7 secs (10.8-13.4)
[2021-03-05] MEDS ORDERED: VANCOMYCIN 1,000 MG VIAL ONE (20:51)
--- NOTE | 2021-03-05 21:15 | NUR ---
TUCKER AND ELIU COVID SAMPLES COLLECTED,WALKED TO LAB, AND HANDED TO CASUALTY INSURANCE CLAIM ADJUSTER.
[2021-03-05 22:02] LABS: BASOPHILS % (AUTO) 0.3 % (0.0-2.0); EOSINOPHILS # (AUTO) 0.3 K/uL (0-0.4); HEMATOCRIT 22.3 % (36-52); HEMOGLOBIN 7.5 g/dL (12.0-18.0); LYMPHOCYTES # (AUTO) 1.4 K/uL (2.0-11.5); LYMPHOCYTES % (AUTO) 13.5 % (20.5-51.1); MEAN CORPUSCULAR HEMOGLOBIN 30 pg (27-31); MEAN CORPUSCULAR HGB CONC 34 g/dL (33-37); MEAN CORPUSCULAR VOLUME 89.6 fL (80-94); MONOCYTES # (AUTO) 0.9 K/uL (0.8-1.0); MONOCYTES % (AUTO) 8.7 % (1.7-9.3); NEUTROPHILS # (AUTO) 7.7 K/uL (1.8-7.7); NEUTROPHILS % (AUTO) 74.5 % (42.2-75.2); PLATELET COUNT (AUTO) 422 K/uL (140-450); RED BLOOD CELL COUNT(AUTO) 2.48 MIL/uL (4.20-6.10); RED CELL DISTRIBUTION WIDTH 14.3 % (11.6-13.7); WHITE BLOOD COUNT (AUTO) 10.3 K/uL (4.8-10.8)
--- NOTE | 2021-03-05 22:10 | NUR ---
PER ERMD PATIENT OK TO EAT UNTIL MIDNIGHT. PATIENT PROVIDED W A SANDWHICH AND JUICE AT THIS TIME.
[2021-03-05] MEDS ORDERED: VANCOMYCIN PER PHARMACY MC PRN (22:25)
[2021-03-05] MEDS ORDERED: ACETAMINOPHEN 325 MG TAB PO PRN (22:25)
[2021-03-05] MEDS ORDERED: MORPHINE SULFATE 4 MG/ML SYR IVP PRN (22:25)
[2021-03-05] MEDS ORDERED: ONDANSETRON 4 MG/2 ML VIAL IVP PRN (22:25)
[2021-03-05 22:28] LABS: ALBUMIN 2.7 g/dL (3.4-5.0); ANION GAP 13.2 (8-16); POTASSIUM 4.2 mmol/L (3.5-5.1); TOTAL BILIRUBIN 0.2 mg/dL (0.0-1.0)
[2021-03-05] MEDS ORDERED: DEXTROSE 50% 50 ML SYR IVP PRN (22:35)
[2021-03-05 22:37] LABS: CREATININE 7.7 mg/dL (0.6-1.3)
--- NOTE | 2021-03-05 23:00 | NUR ---
PATIENT LAYING IN BED LOCKED IN LOWEST POSITION, X1 SIDERAIL UP FOR PATIENT SAFETY. PATIENT WATCHIN VIDEOS ON HIS PHONE. BREATHING EVEN AND UNLABORED. PATIENT DENIES PAIN. NAD NOTED, WILL CONTINUE TO MONITOR.
--- NOTE | 2021-03-06 00:38 | NUR ---
PATIENT LAYING IN BED IN R LATERAL POSITION WATCHING VIDEOS ON PHONE. X1 SIDE RAIL UP. BREATHING EVEN AND UNLABORED. CONNECTED TO MONITOR W VSS. NAD NOTED, WILL CONTINUE TO MONITOR.
--- NOTE | 2021-03-06 02:30 | NUR ---
PATIENT LAYING IN BED, SUPINE POSITION W EYES CLOSED. HEAD OF BED SLIGHTLY ELEVATED. X1 SIDERAIL UP, BED LOCKED IN LOWEST POSITION. BREATHING EVEN AND UNLABORED CONNECTED TO MONIOR W VSS. NAD NOTED, WILL CONTINUT OT MONITOR.
--- NOTE | 2021-03-06 04:00 | NUR ---
PATIENT LAYING IN BED, L LATERAL POSITION W EYES CLOSED, HAS A BLANKET ON. HEAD OF BED SLIGHTLY ELEVATED. X1 SIDERAIL UP, BED LOCKED IN LOWEST POSITION. BREATHING EVEN AND UNLABORED CONNECTED TO MONIOR W VSS. NAD NOTED, WILL CONTINUE TO MONITOR.
--- NOTE | 2021-03-06 06:05 | NUR ---
PATIENT LAYING IN BED CONNECTED TO MONITOR W VSS. BREATHING EVEN AND UNLABORED, DENIES PAIN. WILL CONTINUE TO MONITOR.
[2021-03-06 06:28] LABS: BASOPHILS # (AUTO) 0.2 K/uL (0.00-0.22); BASOPHILS % (AUTO) 1.3 % (0.0-2.0); EOSINOPHILS # (AUTO) 0.3 K/uL (0-0.4); EOSINOPHILS % (AUTO) 2.9 % (0.0-4.0); LYMPHOCYTES # (AUTO) 1.1 K/uL (2.0-11.5); LYMPHOCYTES % (AUTO) 9.2 % (20.5-51.1); MEAN CORPUSCULAR HEMOGLOBIN 30 pg (27-31); MEAN CORPUSCULAR HGB CONC 33 g/dL (33-37); MEAN CORPUSCULAR VOLUME 89.6 fL (80-94); MONOCYTES # (AUTO) 1.2 K/uL (0.8-1.0); MONOCYTES % (AUTO) 10.1 % (1.7-9.3); NEUTROPHILS # (AUTO) 9.1 K/uL (1.8-7.7); NEUTROPHILS % (AUTO) 76.5 % (42.2-75.2); PLATELET COUNT (AUTO) 410 K/uL (140-450); RED BLOOD CELL COUNT(AUTO) 2.35 MIL/uL (4.20-6.10); RED CELL DISTRIBUTION WIDTH 14.3 % (11.6-13.7); WHITE BLOOD COUNT (AUTO) 11.9 K/uL (4.8-10.8)
--- NOTE | 2021-03-06 07:20 | NUR ---
Pt report given to OSVALDO Pack . Transfer of care at this time.
--- NOTE | 2021-03-06 07:22 | NUR ---
RECEIVED REPORT FROM OSVALDO MEJIA. TRANSFER OF CARE RECEIVED
[2021-03-06] MEDS: BLOOD GLUCOSE MONITORING 1 DEV DEV FS SCH ×4 (07:34→21:00)
--- NOTE | 2021-03-06 07:50 | NUR ---
Patient will be admitted to care of DR. SAJAN MARINELLI. Admited to MED-SURG. Will go to room 114. Belongings list completed. Report to OSVALDO GARCIA.
--- NOTE | 2021-03-06 07:55 | NUR ---
[facility] PATIENT ADMITTED PER DR. PAK FOR PRESSURE ULCER ON LEFT FOOT THAT IS NOT HEALING. MICA WASHER GLUER IS AT BEDSIDE WITH PATIENT CHANGING WOUND AND FOLLOWING UP WITH PATIENT'S CASE. PATIENT IS A&O X4. PATIENT IS ON ROOM AIR. RESPIRATIONS ARE EVEN AND UNLABORED. IV SITE IS A 20G AT LEFT AC. IV SITE IS DRY, PATENT, AND INTACT. PATIENT ALSO HAS RIGHT UPPER CHEST DIALYSIS PORT. NO S/S OF DISTRESS. PATIENT DENIES ANY PAIN. ALL SAFETY PRECAUTIONS IN PLACE. WILL CONTINUE TO MONITOR.
--- NOTE | 2021-03-06 08:52 | NUR ---
PATIENT HAS BEEN SCREENED AND CATEGORIZED HIGH NUTRITION RISK. PATIENT WILL BE SEEN WITHIN 1-2 DAYS OF ADMISSION. 03/06/21-03/07/[address]
[2021-03-06] MEDS ORDERED: VANCOMYCIN 500 MG in DEXTROSE 5% 100 ML IV SCH (09:00)
[2021-03-06 09:07] LABS: ANION GAP 18.6 (8-16); CARBON DIOXIDE 24.5 mmol/L (21-32); POTASSIUM 4.1 mmol/L (3.5-5.1)
[2021-03-06 09:10] LABS: CREATININE 8.2 mg/dL (0.6-1.3)
--- NOTE | 2021-03-06 10:47 | NUR ---
DR DISCUSSED HEMODIALYSIS TREATMENT WITH PATIENT. PATIENT VERBALIZED UNDERSTANDING AND SIGNED CONSENT.
--- NOTE | 2021-03-06 12:51 | NUR ---
HD NURSE AT BEDSIDE. PATIENT ON HD TREATMENT. PATIENT IS STABLE. WILL CONTINUE TO MONITOR.
--- NOTE | 2021-03-06 13:43 | NUR ---
03/06/21 RD INITIAL ASSESSMENT COMPLETED PLEASE REFER TO NUTRITION ASSESSMENT UNDER CARE ACTIVITY FOR ESTIMATED NUTRITIONAL NEEDS. 1. CONTINUE NPO 2. IF/WHEN MEDICALLY CLEARED CONSIDER RENAL AND CCHO DIET WITH SULMA BID 3. RD TO FOLLOW-UP 3-5 DAYS, MODERATE RISK YUE [place], RD
[2021-03-06] MEDS: EPOETIN ALFA-EPBX 10,000 UNITS/ML VIAL SUBQ SCH (14:08)
[2021-03-06 16:00] VITALS: BP 95/55
--- NOTE | 2021-03-06 16:30 | NUR ---
PATIENT COMPLETED HD. PATIENT STABLE. Addendum: 03/06/21 at 3 by David Martínez RN RN 1.6 L OF FLUIDS WERE REMOVED.
--- NOTE | 2021-03-06 18:05 | NUR ---
CHECKED ON PATIENT. PATIENT DOES NOT SHOW ANY S/S OF DISTRESS. NO COMPLAINTS OF PAIN. ALL SAFETY PRECAUTIONS IN PLACE. WILL CONTINUE TO MONITOR.
--- NOTE | 2021-03-06 19:30 | NUR ---
ENDORSED TO GRAIN ELEVATOR MOTOR STARTER NURSE FOR CONTINUITY OF CARE. PT IS STABLE.
--- NOTE | 2021-03-06 19:35 | NUR ---
RECEIVED REPORT FROM MARLIN RN. PT AAOX4, WATCHING TV, VOICES NO C/O PAIN OR DISCOMFORT AT PRESENT. RESP REG NON-LABORED, NAD NOTED.
[2021-03-06 20:10] VITALS: BP 107/69
[2021-03-06] MEDS: INSULIN LISPRO SLIDING SCALE 100 UNITS/ML VIAL SUBQ PRN (21:30)
--- NOTE | 2021-03-06 22:50 | NUR ---
MED PASS DONE, PT REFUSED AMBIEN PO, RETURNED TO [facility].
--- NOTE | 2021-03-07 01:05 | NUR ---
ON ROUNDS PT ASLEEP, AT INTERVALS, OOB X2 TO BRP W/ USE OF WALKER, TOLERATED WELL. RESP REG NON-LABORED, NAD NOTED.
[2021-03-07 04:30] VITALS: BP 110/70
[2021-03-07] MEDS: BLOOD GLUCOSE MONITORING 1 DEV DEV FS SCH ×4 (07:28→21:00)
--- NOTE | 2021-03-07 07:30 | NUR ---
RECEIVED BEDSIDE REPORT FROM FORENSICS TEAM DIRECTOR NURSE FOR CONTINUITY OF CARE. PATIENT IS A&O X4, ABLE TO MAKE NEEDS KNOWN. PATIENT IS ON ROOM AIR. RESPIRATIONS ARE EVEN AND UNLABORED. NO DISTRESS NOTED. SKIN IS WARM, DRY, AND NON-INTACT. NOTED REINFORCED DRESSING ON LEFT FOOT DUE TO DIABETIC ULCER. PAINTING SUPERVISOR IS ON THE CASE AND CHANGING DRESSINGS DAILY. IV SITE IS A 20G AT LEFT AC. IV SITE IS DRY, PATENT, AND INTACT. PATIENT ALSO HAS RIGHT UPPER CHEST DIALYSIS PORT. PATIENT DENIES ANY PAIN. PLAN OF CARE DISCUSSED. ALL SAFETY PRECAUTIONS IN PLACE. WILL CONTINUE TO MONITOR.
[2021-03-07 07:39] LABS: ANION GAP 10.9 (8-16); BASOPHILS # (AUTO) 0.2 K/uL (0.00-0.22); BASOPHILS % (AUTO) 1.2 % (0.0-2.0); CARBON DIOXIDE 30.8 mmol/L (21-32); EOSINOPHILS # (AUTO) 0.2 K/uL (0-0.4); EOSINOPHILS % (AUTO) 1.5 % (0.0-4.0); HEMOGLOBIN 7.3 g/dL (12.0-18.0); LYMPHOCYTES # (AUTO) 1.2 K/uL (2.0-11.5); LYMPHOCYTES % (AUTO) 9.1 % (20.5-51.1); MEAN CORPUSCULAR HEMOGLOBIN 29 pg (27-31); MEAN CORPUSCULAR HGB CONC 33 g/dL (33-37); MEAN CORPUSCULAR VOLUME 88.4 fL (80-94); MONOCYTES # (AUTO) 1.3 K/uL (0.8-1.0); MONOCYTES % (AUTO) 10.3 % (1.7-9.3); NEUTROPHILS # (AUTO) 9.9 K/uL (1.8-7.7); NEUTROPHILS % (AUTO) 77.9 % (42.2-75.2); PLATELET COUNT (AUTO) 482 K/uL (140-450); POTASSIUM 3.7 mmol/L (3.5-5.1); RED BLOOD CELL COUNT(AUTO) 2.49 MIL/uL (4.20-6.10); RED CELL DISTRIBUTION WIDTH 14.6 % (11.6-13.7); WHITE BLOOD COUNT (AUTO) 12.7 K/uL (4.8-10.8)
[2021-03-07 07:57] LABS: CREATININE 6.4 mg/dL (0.6-1.3)
[2021-03-07 08:00] VITALS: BP 136/67
[2021-03-07] MEDS ORDERED: VANCOMYCIN 1,000 MG in DEXTROSE 5% 250 ML IV SCH (10:00)
--- NOTE | 2021-03-07 10:05 | NUR ---
ALL SCHEDULED MEDS GIVEN. PT IS STABLE. NO S/S OF RESPIRATORY DISTRESS NOTED. WILL CONTINUE TO MONITOR.
[2021-03-07] MEDS: INSULIN LANTUS 100 UNITS/ML 10 ML VIAL SUBQ SCH (10:25)
[2021-03-07] MEDS: INSULIN LISPRO SLIDING SCALE 100 UNITS/ML VIAL SUBQ PRN ×2 (12:25→22:43)
--- NOTE | 2021-03-07 12:25 | NUR ---
BLOOD GLUCOSE WAS AT 154. INSULIN COVERAGE NEEDED. ADMINISTERED 2 UNITS OF INSULIN SQ PER MD ORDERED.
--- NOTE | 2021-03-07 14:30 | NUR ---
CHECKED ON PATIENT. PATIENT IS ASLEEP. NOTED CHEST RISE AND FALL. NO DISTRESS NOTED. WILL CONTINUE TO MONITOR.
[2021-03-07 16:00] VITALS: BP 113/69
--- NOTE | 2021-03-07 16:45 | NUR ---
DR. PAK AT PATIENT'S BEDSIDE DISCUSSING PLAN OF CARE.
--- NOTE | 2021-03-07 19:30 | NUR ---
RECEIVED REPORT FROM RN DAYSHIFT NURSE AT BEDSIDE FOR CONTINUITY OF CARE, PT IN STABLE CONDITION.
--- NOTE | 2021-03-07 19:30 | NUR ---
ENDORSED TO BRIAR WOOD SORTER NURSE FOR CONTINUITY OF CARE. PT IS STABLE
[2021-03-07 20:00] VITALS: BP 128/74
--- NOTE | 2021-03-07 20:00 | NUR ---
PT LYING IN BED FIANCE AT BEDSIDE. HE IS AOX4 AND ON ROOM AIR. HE HAS A RIGHT SIDED TUNNEL CATHETER FOR HD ACCESS. PORT DRESSING IS DRY AND INTACT. HE HAS IV ON LAC 20 GUAGE WHICH IS SALINE LOCKED. LEFT FOOT DRESSING IS DRY AND INTACT. V/S FOLLOWS: T 98.0 P 94 R 20 B/P 128/74 02 98% ON ROOM AIR. ALL ORDERED PRECAUTIONS IN PLACE.
--- NOTE | 2021-03-07 21:15 | NUR ---
PT FINGERSTICK IS 177, HE WAS GIVEN REQUESTED TYLENOL FOR MILD PAIN IN KNEE, ALL OTHER REQUESTS ATTENDED BY STAFF.
--- NOTE | 2021-03-07 22:00 | NUR ---
PT WAS GIVEN 2 UNITS OF HUMALOG COVERAGE. ALL REQUESTS ATTENDED BY STAFF AND ALL ORDERED PRECAUTIONS IN PLACE.
--- NOTE | 2021-03-08 00:30 | NUR ---
ROUNDS DONE, PT ASLEEP IN BED, ALL UNIVERSAL FALLS PRECAUTIONS IN PLACE.
--- NOTE | 2021-03-08 02:30 | NUR ---
ROUNDS DONE, PT IN BED SLEEPING ALL ORDERED PRECAUTIONS IN PLACE.
[2021-03-08 04:00] VITALS: BP 128/68
--- NOTE | 2021-03-08 06:30 | NUR ---
FINGERSTICK IS 113. NO HUMALOG COVERAGE NEEDED.
[2021-03-08] MEDS: BLOOD GLUCOSE MONITORING 1 DEV DEV FS SCH ×4 (06:56→21:00)
--- NOTE | 2021-03-08 07:30 | NUR ---
RECEIVED BEDSIDE REPORT FROM SILK PRESSER NURSE FOR CONTINUITY OF CARE. PATIENT IS A&O X4, ABLE TO MAKE NEEDS KNOWN. PATIENT IS ON ROOM AIR. RESPIRATIONS ARE EVEN AND UNLABORED. NO DISTRESS NOTED. SKIN IS WARM, DRY, AND NON-INTACT. NOTED REINFORCED DRESSING ON LEFT FOOT DUE TO DIABETIC ULCER. SLABBING MACHINE OPERATOR IS ON THE CASE AND CHANGING DRESSINGS DAILY. IV SITE IS A 20G AT LEFT AC. IV SITE IS DRY, PATENT, AND INTACT. PATIENT ALSO HAS RIGHT UPPER CHEST DIALYSIS PORT. PATIENT DENIES ANY PAIN. PLAN OF CARE DISCUSSED. ALL SAFETY PRECAUTIONS IN PLACE. WILL CONTINUE TO MONITOR.
[2021-03-08 07:42] LABS: BASOPHILS # (AUTO) 0.2 K/uL (0.00-0.22); BASOPHILS % (AUTO) 1.3 % (0.0-2.0); EOSINOPHILS # (AUTO) 0.2 K/uL (0-0.4); EOSINOPHILS % (AUTO) 1.2 % (0.0-4.0); HEMOGLOBIN 7.3 g/dL (12.0-18.0); LYMPHOCYTES # (AUTO) 1.3 K/uL (2.0-11.5); LYMPHOCYTES % (AUTO) 10.1 % (20.5-51.1); MEAN CORPUSCULAR HEMOGLOBIN 30 pg (27-31); MEAN CORPUSCULAR HGB CONC 33 g/dL (33-37); MEAN CORPUSCULAR VOLUME 89.2 fL (80-94); MONOCYTES # (AUTO) 1.4 K/uL (0.8-1.0); MONOCYTES % (AUTO) 10.3 % (1.7-9.3); NEUTROPHILS # (AUTO) 10.2 K/uL (1.8-7.7); NEUTROPHILS % (AUTO) 77.1 % (42.2-75.2); PLATELET COUNT (AUTO) 468 K/uL (140-450); RED BLOOD CELL COUNT(AUTO) 2.46 MIL/uL (4.20-6.10); RED CELL DISTRIBUTION WIDTH 14.3 % (11.6-13.7); WHITE BLOOD COUNT (AUTO) 13.3 K/uL (4.8-10.8)
[2021-03-08 07:49] LABS: CARBON DIOXIDE 27.9 mmol/L (21-32); POTASSIUM 3.9 mmol/L (3.5-5.1)
[2021-03-08 07:54] LABS: CREATININE 8.9 mg/dL (0.6-1.3)
[2021-03-08 08:00] VITALS: BP 119/75
--- NOTE | 2021-03-08 09:30 | NUR ---
ALL SCHEDULED MEDS GIVEN. PT IS STABLE. NO DISTRESS NOTED. WILL CONTINUE TO MONITOR. Addendum: 03/08/21 at 7 by David Martínez RN RN 1000* WRONG TIMESTAMP
[2021-03-08] MEDS: INSULIN LANTUS 100 UNITS/ML 10 ML VIAL SUBQ SCH (09:57)
[2021-03-08] MEDS: INSULIN LISPRO SLIDING SCALE 100 UNITS/ML VIAL SUBQ PRN (12:21)
--- NOTE | 2021-03-08 12:21 | NUR ---
BLOOD GLUCOSE CHECK WAS 175. ADMINISTERED 2 UNITS OF INSULIN SQ PER MD ORDERED.
--- NOTE | 2021-03-08 14:10 | NUR ---
MD AT BEDSIDE ENDORSING PATIENT BLOOD TRANSFUSION RISKS AND BENEFITS. PATIENT AND MD SIGNED THE CONSENT FORM. AWAITING FOR BLOOD TO BE READY.
[2021-03-08 16:00] VITALS: BP 145/81
--- NOTE | 2021-03-08 16:30 | NUR ---
CHECKED ON PATIENT. PATIENT IS STABLE. NO DISTRESS NOTED. WILL CONTINUE TO MONITOR
--- NOTE | 2021-03-08 18:00 | NUR ---
HD NURSE AT BEDSIDE PREPARING PATIENT FOR HD TREATMENT.
--- NOTE | 2021-03-08 19:30 | NUR ---
ENDORSED TO VARIOUS EXCEPTIONALITIES TEACHER NURSE FOR CONTINUITY OF CARE. PT IS STABLE.
[2021-03-08 20:00] VITALS: BP 136/76
--- NOTE | 2021-03-08 20:00 | NUR ---
PATIENT RECEIVED IN BED ALERT AND ORIENTED X 3-4 ABLE TO SPEAK NEEDS, NO S/S OF DISTRESS.
--- NOTE | 2021-03-08 21:00 | NUR ---
PATIENT WAS WITH DIALYSIS NURSE, ON GOING DIALYSIS, 1 PACK RBC WAS INFUSED BY DIALYSIS NURSE, TOLERATED WELL BY THE PATIENT
--- NOTE | 2021-03-08 22:05 | NUR ---
ALL DUE MEDS WERE GIVEN, VIA IV, TOLERATED WELL BY THE PATIENT.
--- NOTE | 2021-03-09 | NUR ---
PATIENT WAS CALMLY ASLEEP
[2021-03-09] MEDS: INSULIN LISPRO SLIDING SCALE 100 UNITS/ML VIAL SUBQ PRN ×2 (00:08→21:15)
--- NOTE | 2021-03-09 02:00 | NUR ---
PATIENT WAS CALMLY ASLEEP
[2021-03-09 04:00] VITALS: BP 120/75
--- NOTE | 2021-03-09 04:00 | NUR ---
PATIENT WAS CALMLY ASLEEP
[2021-03-09 06:08] LABS: ANION GAP 11.8 (8-16); CARBON DIOXIDE 30.8 mmol/L (21-32); POTASSIUM 3.6 mmol/L (3.5-5.1)
[2021-03-09 06:15] LABS: BASOPHILS # (AUTO) 0.2 K/uL (0.00-0.22); BASOPHILS % (AUTO) 1.4 % (0.0-2.0); EOSINOPHILS # (AUTO) 0.3 K/uL (0-0.4); EOSINOPHILS % (AUTO) 2.4 % (0.0-4.0); HEMOGLOBIN 8.9 g/dL (12.0-18.0); LYMPHOCYTES # (AUTO) 1.7 K/uL (2.0-11.5); LYMPHOCYTES % (AUTO) 13.7 % (20.5-51.1); MEAN CORPUSCULAR HEMOGLOBIN 30 pg (27-31); MEAN CORPUSCULAR HGB CONC 33 g/dL (33-37); MEAN CORPUSCULAR VOLUME 89.6 fL (80-94); MONOCYTES # (AUTO) 1.8 K/uL (0.8-1.0); MONOCYTES % (AUTO) 14.1 % (1.7-9.3); NEUTROPHILS # (AUTO) 8.7 K/uL (1.8-7.7); NEUTROPHILS % (AUTO) 68.4 % (42.2-75.2); PLATELET COUNT (AUTO) 515 K/uL (140-450); RED BLOOD CELL COUNT(AUTO) 3.02 MIL/uL (4.20-6.10); RED CELL DISTRIBUTION WIDTH 14.1 % (11.6-13.7); WHITE BLOOD COUNT (AUTO) 12.8 K/uL (4.8-10.8)
[2021-03-09 06:19] LABS: CREATININE 6.4 mg/dL (0.6-1.3)
[2021-03-09] MEDS: BLOOD GLUCOSE MONITORING 1 DEV DEV FS SCH ×4 (07:54→21:11)
--- NOTE | 2021-03-09 07:55 | NUR ---
ALL REPORTS WERE GIVEN, TRANSFER OF CARE ENDORSED.
[2021-03-09 08:00] VITALS: BP 129/75
--- NOTE | 2021-03-09 08:00 | NUR ---
RECEIVED REPORT FROM RN FOR CONTINUITY OF CARE. PATIENT IS STABLE.
[2021-03-09 08:07] LABS: PROTHROMBIN TIME 10.9 secs (10.8-13.4)
[2021-03-09] MEDS: EPOETIN ALFA-EPBX 10,000 UNITS/ML VIAL SUBQ SCH (08:47)
[2021-03-09] MEDS: INSULIN LANTUS 100 UNITS/ML 10 ML VIAL SUBQ SCH (08:47)
--- NOTE | 2021-03-09 09:00 | NUR ---
ALL SCHEDULED MEDICATIONS HELD PER NPO ORDER.
--- NOTE | 2021-03-09 11:30 | NUR ---
CHECKED ON PATIENT. PATIENT IS STABLE. AWAITING PROCEDURE. ALL SAFETY PRECAUTIONS IN PLACE. WILL CONTINUE TO MONITOR.
--- NOTE | 2021-03-09 13:04 | NUR ---
CHECKED PATIENT'S BLOOD SUGAR. BLOOD SUGAR IS AT 124. NO INSULIN COVERAGE NEEDED PER SLIDING SCALE. PATIENT VERBALIZED UNDERSTANDING.
--- NOTE | 2021-03-09 15:47 | NUR ---
DC PLANNING: PATIENT KNOWN TO AUTHOR FROM PRIOR ADMISSION, SENT TO ER BY DR. PAK FOR S/S OF INFECTION AT SURGERY SITE. 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 PATIENTS ASKED ABOUT SUPERVISOR [employer] DEPARTMENT DISABILITY OPPOSED TO SSDI, CM EXPLAINED THE DIFFERENCE AND RECOMMENDED THAT SHE SPEAK WITH HIS EMPLOYER ABOUT THIS. PATIENT SET UP WITH [facility] FOR HD, DME THROUGH [facility] AND [facility] FOR WOUND CARE THROUGH [facility]. JACKIE SPOKE WITH THE PATIENT WHO STATES THAT THE LAST DC ARRANGEMENTS ARE "WORKING OUT FINE". CM WILL RE-EVALUATE FOR DC NEEDS AND CONTINUE TO FOLLOW.
[2021-03-09 16:00] VITALS: BP 133/78
--- NOTE | 2021-03-09 17:45 | NUR ---
PATIENT'S PROCEDURE WAS RESCHEDULED FOR TOMORROW 03/[address] PAK. PATIENT IS AWARE.
--- NOTE | 2021-03-09 19:31 | NUR ---
ENDORSED PATIENT TO TELEPHONIC NURSE RN FOR CONTINUITY OF CARE. PATIENT STABLE.
[2021-03-09 20:00] VITALS: BP 107/66
--- NOTE | 2021-03-09 20:00 | NUR ---
PATIENT WAS RECEIVED IN BED ALERT AND COHERENT, DENIES ANT PAIN AT THIS TIME.
--- NOTE | 2021-03-09 21:00 | NUR ---
ACU CHECK WAS 238, 4 UNITS REGULAR INSULIN COVERAGE WAS ADMINISTERED SQ, TOLERATED WELL BY THE PATIENT.
--- NOTE | 2021-03-10 | NUR ---
PATIENT WAS CALMLY ASLEEP AT THIS TIME, NOS/S OF DISTRESS NOR GRIMACING.
--- NOTE | 2021-03-10 02:00 | NUR ---
PATIENT WAS CALMLY ASLEEP AT THIS TIME, NOS/S OF DISTRESS NOR GRIMACING.
[2021-03-10 04:00] VITALS: BP 118/70
--- NOTE | 2021-03-10 05:00 | NUR ---
V/S WNL, BS =107 NEEDING NO REGULAR INSULIN TO COVER.
[2021-03-10] MEDS: BLOOD GLUCOSE MONITORING 1 DEV DEV FS SCH ×4 (06:07→21:33)
[2021-03-10 06:17] LABS: BASOPHILS # (AUTO) 0.2 K/uL (0.00-0.22); BASOPHILS % (AUTO) 1.7 % (0.0-2.0); EOSINOPHILS # (AUTO) 0.4 K/uL (0-0.4); EOSINOPHILS % (AUTO) 3.4 % (0.0-4.0); HEMATOCRIT 24.4 % (36-52); HEMOGLOBIN 8.3 g/dL (12.0-18.0); LYMPHOCYTES # (AUTO) 1.8 K/uL (2.0-11.5); LYMPHOCYTES % (AUTO) 16.9 % (20.5-51.1); MEAN CORPUSCULAR HEMOGLOBIN 30 pg (27-31); MEAN CORPUSCULAR HGB CONC 34 g/dL (33-37); MEAN CORPUSCULAR VOLUME 88.7 fL (80-94); MONOCYTES # (AUTO) 1.9 K/uL (0.8-1.0); MONOCYTES % (AUTO) 17.5 % (1.7-9.3); NEUTROPHILS # (AUTO) 6.6 K/uL (1.8-7.7); NEUTROPHILS % (AUTO) 60.5 % (42.2-75.2); PLATELET COUNT (AUTO) 506 K/uL (140-450); RED BLOOD CELL COUNT(AUTO) 2.76 MIL/uL (4.20-6.10); WHITE BLOOD COUNT (AUTO) 10.9 K/uL (4.8-10.8)
[2021-03-10 06:27] LABS: ANION GAP 13.7 (8-16); CARBON DIOXIDE 28.3 mmol/L (21-32)
[2021-03-10 06:42] LABS: CREATININE 8.6 mg/dL (0.6-1.3)
--- NOTE | 2021-03-10 06:48 | NUR ---
ALL REPORTS WERE GIVEN, TRANSFER OF CARE ENDORSED.
--- NOTE | 2021-03-10 07:05 | NUR ---
RECEIVED REPORT FROM INSURANCE SALES SUPERVISOR RN FOR CONTINUITY OF CARE. PATIENT IS RESTING IN BED. NO S/S OF DISTRESS. ALL SAFETY PRECAUTIONS IN PLACE.
[2021-03-10 08:00] VITALS: BP 129/79
[2021-03-10] MEDS: INSULIN LANTUS 100 UNITS/ML 10 ML VIAL SUBQ SCH (08:38)
--- NOTE | 2021-03-10 10:35 | NUR ---
RECEIVED ORDER FOR D5 NS AT 50 ML/HR. ADMINISTERED FLUIDS TO PATIENT. FLUIDS ARE RUNNING WELL.
[2021-03-10] MEDS: DEXT 5% /NACL 0.9% 1,000 ML IV SCH (10:42)
--- NOTE | 2021-03-10 11:54 | NUR ---
CHECKED PATIENT'S BLOOD SUGAR. BLOOD SUGAR IS AT 119. NO INSULIN COVERAGE NEEDED PER SLIDING SCALE. PATIENT VERBALIZED UNDERSTANDING.
--- NOTE | 2021-03-10 13:55 | NUR ---
PATIENT'S AT BEDSIDE. PATIENT IS STABLE. NO S/S OF DISTRESS. ALL SAFETY PRECAUTIONS IN PLACE.
[2021-03-10] MEDS ORDERED: BUPIVACAINE-MPF 0.25% 30 ML VIAL INJ ONE ×2 (15:35→16:31)
--- NOTE | 2021-03-10 15:50 | NUR ---
OR NURSES ON UNIT TO TAKE PATIENT TO SURGERY. PATIENT IS STABLE.
[2021-03-10] MEDS ORDERED: PIPERACILLIN/TAZOBACTAM 3.375 GM VIAL IV ONE (15:57)
[2021-03-10 16:00] VITALS: BP 132/67
[2021-03-10] MEDS ORDERED: fentaNYL citrate 0.05 MG/ML VIAL ONE (16:03)
[2021-03-10] MEDS ORDERED: PROPOFOL 200 MG/20 ML VIAL IV ONE (16:04)
[2021-03-10] MEDS ORDERED: ONDANSETRON 4 MG/2 ML VIAL ONE ×2 (16:04→17:25)
[2021-03-10] MEDS ORDERED: DESFLURANE 240 ML BTL INH ONE (16:04)
[2021-03-10] MEDS ORDERED: PHENYLEPHRINE 10 MG/ML VIAL ONE (17:25)
[2021-03-10] MEDS ORDERED: ONDANSETRON 4 MG/2 ML VIAL IVP PRN (17:40)
[2021-03-10] MEDS ORDERED: BLOOD GLUCOSE MONITORING 1 DEV DEV FS SCH (17:40)
[2021-03-10] MEDS ORDERED: HYDROmorphone 1 MG/ML AMP IVP PRN ×2 (17:40→20:15)
--- NOTE | 2021-03-10 18:00 | NUR ---
PATIENT RETURNED FROM OR. PATIENT IS STABLE BUT COMPLAINS OF PAIN. ADMINISTERED PRN PAIN MEDICATION. ALL SAFETY PRECAUTIONS IN PLACE. WILL CONTINUE TO MONITOR.
--- NOTE | 2021-03-10 19:30 | NUR ---
ENDORSED PATIENT TO FARM SERVICE ADVISER RN FOR CONTINUITY OF CARE. PATIENT IS STABLE.
--- NOTE | 2021-03-10 19:31 | NUR ---
RECD. RESTING IN BED, AWAKE, A/OX4. RESPIRATION EVEN AND UNLABORED. IV OF D5 NS INFUSING AT 50 ML/HR, LEFT AC G20. ABLE TO AMBULATE WITH WALKER FROM BED TO BR. LEFT BELOW THE KNEE AMPUTATION COVERED WITH DRESSING AND ANNALEE WRAP BANDAGED, DRY AND INTACT. PAIN IN THE SITE 09/24, WAS MEDICATED BY AM NURSE AT 1815 WITH MORPHINE. WILL CONTINUE TO MONITOR AND MEDICATE PER MD ORDER. MEDICATIONS FOR THE NIGHT DISCUSSED WITH PATIENT. VERBALIZED UNDERSTANDING. AT THE BEDSIDE.
[2021-03-10 20:00] VITALS: BP 116/68
--- NOTE | 2021-03-10 20:00 | NUR ---
COMPLAINING THAT MORPHINE THAT WAS GIVEN TO HIM IS NOT EFFECTIVE TO CONTROL HIS PAIN. WILL INFORM
[2021-03-10] MEDS ORDERED: MORPHINE SULFATE 2 MG/ML SYR IVP PRN (20:20)
--- NOTE | 2021-03-10 20:27 | NUR ---
DR. TURK ORDERED DILAUDID FOR PATIENT FOR SEVERE PAIN.
[2021-03-10] MEDS: HYDROmorphone 1 MG/ML AMP IVP PRN (21:22)
[2021-03-10] MEDS: PIPERACILLIN/TAZOBACTAM 2.25 GM in DEXTROSE 5% 50 ML IV SCH (21:22)
--- NOTE | 2021-03-10 21:33 | NUR ---
SCHEDULED MEDICATION GIVEN. BLOOD SUGAR 213, INSULIN PER SLIDING SCALE GIVEN. ATE 100% OF SNACK.
[2021-03-10] MEDS: INSULIN LISPRO SLIDING SCALE 100 UNITS/ML VIAL SUBQ PRN (21:35)
--- NOTE | 2021-03-10 23:00 | NUR ---
REFUSED TO BE CONNECTED TO IV MACHINE, STATED HE FEELS UNCOMFORTABLE WITH THE IV MACHINE.
[2021-03-11] VITALS: BP 122/65
[2021-03-11] MEDS: HYDROcodone/APAP 5/325 MG 1 TAB TAB PO PRN ×3 (00:26→23:17)
[2021-03-11] MEDS: ZOLPIDEM 5 MG TAB PO PRN ×2 (00:26→23:14)
--- NOTE | 2021-03-11 00:26 | NUR ---
UNABLE TO SLEEP, MEDICATED WITH AMBIEN PER MD ORDER.
--- NOTE | 2021-03-11 01:25 | NUR ---
SLEEPING COMFORTABLY IN BED.
--- NOTE | 2021-03-11 03:00 | NUR ---
WENT TO BR. HAD MODERATE AMOUNT OF LOOSE BM. BACK TO BED, SAFETY MAINTAINED.
[2021-03-11 04:00] VITALS: BP 116/65
[2021-03-11] MEDS: PIPERACILLIN/TAZOBACTAM 2.25 GM in DEXTROSE 5% 50 ML IV SCH ×3 (05:00→21:03)
--- NOTE | 2021-03-11 06:00 | NUR ---
SLEEPING COMFORTABLY IN BED. RESPIRATION EVEN AND UNLABORED.
[2021-03-11] MEDS: BLOOD GLUCOSE MONITORING 1 DEV DEV FS SCH ×4 (06:16→21:06)
[2021-03-11] MEDS: DEXT 5% /NACL 0.9% 1,000 ML IV SCH (06:35)
--- NOTE | 2021-03-11 07:23 | NUR ---
CONDITION REMAIN STABLE. ENDORSED TO AM SHIFT NURSE FOR CONTINUITY OF CARE.
--- NOTE | 2021-03-11 07:24 | NUR ---
PT HAS BEEN ENDORSED TO IN HOUSE COUNSEL NURSE FOR CONTINUITY OF CARE, POC DISCUSSED. PT IS RESTING IN BED WITH NO ACUTE S/S OF DISTRESS. PT IS S/P LEFT BELOW THE KNEE AMPUTATION. DRESSING INTACT. PT IS KARELY FOR DIALYSIS TODAY WITH A RIGHT TUNNEL CATH. PT HAS A L AC 20 G RUNNING D5 NS. PT IS ON ROOM AIR WITH CHEST RISING AND FALLING EVEN AND UNLABORED. ALL SAFETY MEASURES IN PLACE, CALL LIGHT WITHIN REACH. WILL CONTINUE TO MONITOR.
[2021-03-11 08:00] VITALS: BP 117/71
[2021-03-11] MEDS: INSULIN LANTUS 100 UNITS/ML 10 ML VIAL SUBQ SCH (08:49)
[2021-03-11] MEDS: EPOETIN ALFA-EPBX 10,000 UNITS/ML VIAL SUBQ SCH (08:53)
--- NOTE | 2021-03-11 09:05 | NUR ---
KARELY MEDICATION ADMINISTERED PER MD ORDER, PT TOLERATED ADMINISTRATION. PT EDUCATION PROVIDED. HEMODIALYSIS NURSE CAME IN AFTER ADMINISTRATION. SUPPLIED HD NURSE REQUESTED. PT IS STABLE AND REPORTS PAIN TOLERABLE, REPORTS ALL NEEDS MET AT THIS TIME. ALL SAFETY MEASURES IN PLACE, CALL LIGHT WITHIN REACH .WILL CONTINUE TO MONITOR.
--- NOTE | 2021-03-11 10:01 | NUR ---
HEPARIN, SPO2 MONITOR, AND 4X4 GAUZE GIVEN TO HD NURSE FOR HEMODIALYSIS, PT IS STABLE AT THIS TIME.
[2021-03-11] MEDS: INSULIN LISPRO SLIDING SCALE 100 UNITS/ML VIAL SUBQ PRN ×3 (11:15→21:11)
--- NOTE | 2021-03-11 11:18 | NUR ---
BLOOD GLUCOSE IS 197, 2 UNITS OF INSULIN ADMINISTERED PER MD ORDER. PT TOLERATED ADMINISTRATION. PT IS CURRENT RECEIVING HD AND IS TOLERATING IT. ALL NEEDS ARE MET AT THIS TIME WITH NO PAIN REPORTED. ALL SAFETY MEASURES IN PLACE. CALL LIGHT WITHIN REACH. WILL CONTINUE TO MONITOR.
--- NOTE | 2021-03-11 12:48 | NUR ---
PT IS STILL RECEIVING HEMODIALYSIS, HEMODIALYSIS NURSE REPORTS NO NEEDS AT THIS TIME. PT IS STABLE AND EATING LUNCH. ALL SAFETY MEASURES IN PLACE, CALL LIGHT WITHIN REACH. WILL CONTINUE TO MONITOR.
--- NOTE | 2021-03-11 13:24 | NUR ---
PT FINISHED HEMODIALYSIS, PT IS STABLE. PT HAD 2L REMOVED. HR IS 93 AND BP IS 117/83.
[2021-03-11] MEDS: HYDROmorphone 1 MG/ML AMP IVP PRN ×2 (13:46→19:17)
--- NOTE | 2021-03-11 13:59 | NUR ---
MEDICATED DUE TO PTS REPORT OF SEVERE PAIN, MEDICATED PRIOR TO ASSESSMENT OF LEFT BKA. REMOVED ANNALEE BANDAGE AND THE DRESSING IS DRY WITH NO DRAINAGE NOTED. PLACED ANNALEE WRAP BACK ON. PT IS STABLE WITH NO FURTHER REPORTS AND IN STABLE CONDITION. ALL SAFETY MEASURES IN PLACE, CALL LIGHT WITHIN REACH. WILL CONTINUE TO MONITOR.
--- NOTE | 2021-03-11 15:30 | NUR ---
PT IS RESTING IN BED WITH NO ACUTE S/S OF DISTRESS, PT REPORTS PAIN TOLERABLE AND DENIES NAUSEA AND VOMITING. ALL SAFETY MEASURES IN PLACE. CALL LIGHT WITHIN REACH. WILL CONTINUE TO MONITOR.
[2021-03-11 16:00] VITALS: BP 142/78
--- NOTE | 2021-03-11 16:25 | NUR ---
03/11/21 RD FOLLOW UP COMPLETED PLEASE REFER TO NUTRITION ASSESSMENT UNDER CARE ACTIVITY FOR ESTIMATED NUTRITIONAL NEEDS. 1. CONTINUE RENAL AND CCHO 60GM DIET 2. CONTINUE SULMA BID AND NEPRO BID 3. RD TO FOLLOW-UP 3-5 DAYS, MODERATE RISK YUE [place], RD
--- NOTE | 2021-03-11 16:32 | NUR ---
BLOOD GLUCOSE IS 196; 2 UNITS OF INSULIN ADMINISTERED PER MD ORDER. PT TOLERATE ADMINISTRATION. ALL SAFETY MEASURES IN PLACE. CALL LIGHT WITHIN REACH. WILL CONTINUE TO MONITOR.
--- NOTE | 2021-03-11 18:14 | NUR ---
ROUNDED ON PT, PT IS RESTING COMFORTABLE IN BED ON HIS PHONE. CHEST RISING AND FALLING EVEN AND UNLABORED. ALL SAFETY MEASURES IN PLACE, CALL LIGHT WITHIN REACH. WILL CONTINUE TO MONITOR.
--- NOTE | 2021-03-11 19:04 | NUR ---
PT ENDORSED TO FIELD COLLECTOR IN STABLE CONDITION, POC DISCUSSED.
--- NOTE | 2021-03-11 19:06 | NUR ---
RECEIVED REPORT FROM AM NURSE. PATIENT IN BED RESTING. VISITOR AT BEDSIDE. NO SOB NOTED. ALL SAFETY PRECAUTIONS ARE IN PLACE. IVF INFUSING WELL. CALL LIGHT WITHIN REACH. NO COMPLAINTS OF PAIN AT THIS TIME. WILL CONTINUE TO MONITOR.
--- NOTE | 2021-03-11 20:47 | NUR ---
SCHEDULED MEDICATIONS ADMINISTERED ORDERED.
[2021-03-12] VITALS: BP 116/59
--- NOTE | 2021-03-12 00:46 | NUR ---
PATIENT IS STILL AWAKE WATCHING TV.
[2021-03-12] MEDS: DEXT 5% /NACL 0.9% 1,000 ML IV SCH ×2 (02:35→03:45)
[2021-03-12] MEDS: PIPERACILLIN/TAZOBACTAM 2.25 GM in DEXTROSE 5% 50 ML IV SCH ×2 (04:43→12:21)
--- NOTE | 2021-03-12 04:43 | NUR ---
ZOSYN GIVEN PER MD ORDERED.
[2021-03-12 07:03] LABS: ANION GAP 15.1 (8-16); CARBON DIOXIDE 25.7 mmol/L (21-32); POTASSIUM 3.8 mmol/L (3.5-5.1)
--- NOTE | 2021-03-12 07:18 | NUR ---
ENDORSED TO AM NURSE FOR CONTINUITY OF CARE. PATIENT IS IN STABLE CONDITION.
[2021-03-12 07:19] LABS: BASOPHILS # (AUTO) 0.2 K/uL (0.00-0.22); BASOPHILS % (AUTO) 1.8 % (0.0-2.0); EOSINOPHILS # (AUTO) 0.2 K/uL (0-0.4); EOSINOPHILS % (AUTO) 2.7 % (0.0-4.0); HEMATOCRIT 22.3 % (36-52); HEMOGLOBIN 7.5 g/dL (12.0-18.0); LYMPHOCYTES # (AUTO) 1.5 K/uL (2.0-11.5); MEAN CORPUSCULAR HEMOGLOBIN 30 pg (27-31); MEAN CORPUSCULAR HGB CONC 34 g/dL (33-37); MEAN CORPUSCULAR VOLUME 89.1 fL (80-94); MONOCYTES # (AUTO) 1.5 K/uL (0.8-1.0); MONOCYTES % (AUTO) 16.8 % (1.7-9.3); NEUTROPHILS # (AUTO) 5.4 K/uL (1.8-7.7); NEUTROPHILS % (AUTO) 61.7 % (42.2-75.2); PLATELET COUNT (AUTO) 430 K/uL (140-450); RED CELL DISTRIBUTION WIDTH 14.2 % (11.6-13.7); WHITE BLOOD COUNT (AUTO) 8.7 K/uL (4.8-10.8)
--- NOTE | 2021-03-12 07:21 | NUR ---
RECEIVED REPORT FROM SENIOR MECHANICAL TECHNICIAN NURSE FOR CONTINUITY OF CARE, POC DISCUSSED. PT IS ASLEEP IN BED WITH NO ACUTE S/S OF DISTRESS. ALL SAFETY MEASURES IN PLACE, CALL LIGHT WITHIN REACH. WILL CONTINUE TO MONITOR.
[2021-03-12 08:00] VITALS: BP 116/74
[2021-03-12] MEDS: BLOOD GLUCOSE MONITORING 1 DEV DEV FS SCH ×3 (08:12→16:51)
--- NOTE | 2021-03-12 08:24 | NUR ---
KARELY MEDICATION ADMINISTERED PER MD ORDER. PT TOLERATED ADMINISTRATION. PT REPORTS PAIN, MEDICATED PER MD ORDER. PT VERBALIZED ALL OTHER NEEDS ARE MET. ALL SAFETY MEASURES IN PLACE, CALL LIGHT WITHIN REACH. WILL CONTINUE TO MONITOR.
[2021-03-12 08:47] LABS: CREATININE 7.6 mg/dL (0.6-1.3)
[2021-03-12] MEDS: INSULIN LANTUS 100 UNITS/ML 10 ML VIAL SUBQ SCH (09:15)
[2021-03-12] MEDS: HYDROcodone/APAP 5/325 MG 1 TAB TAB PO PRN ×2 (09:16→14:15)
--- NOTE | 2021-03-12 11:32 | NUR ---
PT BLOOD GLUCOSE IS 270, 6 UNITS OF INSULIN WILL BE ADMINISTERED PER SLIDING SCALE.
[2021-03-12] MEDS: INSULIN LISPRO SLIDING SCALE 100 UNITS/ML VIAL SUBQ PRN (12:17)
--- NOTE | 2021-03-12 12:31 | NUR ---
KARELY ABX ADMINISTERED PER MD ORDER. PT DECLINES PAIN AT THIS TIME, REPORTS ALL NEEDS ARE MET. CALL LIGHT WITHIN REACH. WILL CONTINUE TO MONITOR.
--- NOTE | 2021-03-12 13:54 | NUR ---
DR. PAK REMOVED DRESSING, ASSESSES SURGICAL INCISION ON LEFT BKA AND STATED IT LOOKS "GOOD". STATES PT TO FOLLOW UP WITH OUTPATIENT. ORDERED LEFT BKA TO BE DRESSES WITH ABD PAD, KERLIX, AND ANNALEE BANDAGE
--- NOTE | 2021-03-12 14:15 | NUR ---
MEDICATED PRIOR TO DRESSING CHANGE. WILL WAIT FOR MEDICATION TO BE IN AFFECT AND THEN DO DRESSING CHANGE
[2021-03-12] MEDS ORDERED: SULF-59 PO (16:05)
[2021-03-12] MEDS ORDERED: CEPH250C16 PO (16:05)
--- NOTE | 2021-03-12 18:49 | NUR ---
PT HAS BEEN DISCHARGED. ALL DISCHARGE INSTRUCTIONS COVERED; MEDICATION, DURATION, SIDE EFFECTS AND LENGTH. FOLLOW UP WITH SURGEON WITHIN 2 WEEKS. EDUCATED ON TAKING PAIN MEDICATION NEEDED. EDUCATED ON S/S TO MONITOR FOR IN CASE OF AN EMERGENCY RETURN TO YOUR NEAREST ER. PT AND FAMILY AT BEDSIDE VERBALIZED UNDERSTANDING. ALL QUESTIONS HAVE BEEN ANSWERED AND PT/ FAMILY STATED THEY ARE SATISFIED. PT IS STABLE. PT IV HAS BEEN REMOVED, CATH IN PLACE. ID BAND REMOVED. PT HAS ALL HIS BELONGINGS. PT HAS BEEN WHEELED OUT AND DISCHARGE WITH , SISTER AND SON IN STABLE CONDITION.
== END 2021-03-12 18:50 | disposition home or self-care (01) | DRG 907 ==
LOC: MED 18:08 → MMU 22:23 → MTU 03-06 05:30
PROVIDERS: ADMIT Internal Medicine; ATTEND Internal Medicine
PROC: 5A1D70Z Performance of Urinary Filtration, Intermittent, Less than 6 Hours Per Day (ICD-10-PCS; 2021-03-05)
PROC: 5A1D70Z Performance of Urinary Filtration, Intermittent, Less than 6 Hours Per Day (ICD-10-PCS; 2021-03-08)
PROC: 30233N1 Transfusion of Nonautologous Red Blood Cells into Peripheral Vein, Percutaneous Approach (ICD-10-PCS; 2021-03-08)
PROC: 5A1D70Z Performance of Urinary Filtration, Intermittent, Less than 6 Hours Per Day (ICD-10-PCS; 2021-03-10)
PROC: 0Y6J0Z2 Detachment at Left Lower Leg, Mid, Open Approach (ICD-10-PCS; principal; 2021-03-10 14:30)
PROC: 5A1D70Z Performance of Urinary Filtration, Intermittent, Less than 6 Hours Per Day (ICD-10-PCS; 2021-03-11)
PROC: 5A1D70Z Performance of Urinary Filtration, Intermittent, Less than 6 Hours Per Day (ICD-10-PCS; 2021-03-12)
DX: T81.30XA Disruption of wound, unspecified, initial encounter (principal); N18.6 End stage renal disease; I96 Gangrene, not elsewhere classified; E11.52 Type 2 diabetes mellitus with diabetic peripheral angiopathy with gangrene; I12.0 Hypertensive chronic kidney disease with stage 5 chronic kidney disease or end stage renal disease; Y83.8 Other surgical procedures as the cause of abnormal reaction of the patient, or of later complication, without mention of misadventure at the time of the procedure; Y92.89 Other specified places as the place of occurrence of the external cause; I10 Essential (primary) hypertension; E11.40 Type 2 diabetes mellitus with diabetic neuropathy, unspecified; E11.22 Type 2 diabetes mellitus with diabetic chronic kidney disease; Z20.822 Contact with and (suspected) exposure to COVID-19; D64.9 Anemia, unspecified
CPT/HCPCS: 36415; 71045; 73630; 80048; 80053; 80202; 82728; 82948; 83540; 83605; 84100; 85025; 85610; 85651; 85730; 86140; 86886; 86900; 86901; 86920; 87040; 87081; 93005; 96365; 96367; 99285; J1170; J1644; J1815; J2270; J2370; J2405; J2543; J2704; J3010; J3370; J3490; J7030; J7060; P9016; Q5106; U0003

== ENCOUNTER 2022-01-27 19:23 | Emergency (ER) | payer BC ==
[~2022-01-27] VITALS: Ht 180.3 cm; Wt 86.6 kg
[~2022-01-27 19:23] MED LIST changes: -ACET-9525 PO; +CEPH250C16 PO; -FURO-572 PO; -SULF-58 PO; +SULF-59 PO
[2022-01-27 19:53] VITALS: BP 121/77
--- NOTE | 2022-01-27 20:02 | NUR ---
TO LOBBY FOLLOWING TRIAGE
--- NOTE | 2022-01-27 23:26 | NUR ---
Dr. Helton examining patient.
[2022-01-27] MEDS ORDERED: cephALEXin 500 MG CAP PO ONE (23:35)
[2022-01-27] MEDS ORDERED: CEPH-588 PO (23:38)
[2022-01-27 23:51] VITALS: BP 118/78
--- NOTE | 2022-01-27 23:51 | NUR ---
Patient discharged with v/s stable. Written and verbal after care instructions given and explained for Pressure injury and Blisters, adult. Patient alert, oriented and verbalized understanding of instructions. Wheel Chair Assisted with to car. All questions addressed prior to discharge. ID band removed. Patient advised to follow up with PMD. Rx of Keflex given. Patient educated on indication of medication including possible reaction and side effects. Opportunity to ask questions provided and answered.
== END 2022-01-27 23:51 | disposition home or self-care (01) ==
LOC: MED 19:23
DX: S80.822A Blister (nonthermal), left lower leg, initial encounter (principal); E11.22 Type 2 diabetes mellitus with diabetic chronic kidney disease; I12.0 Hypertensive chronic kidney disease with stage 5 chronic kidney disease or end stage renal disease; N18.6 End stage renal disease; Z89.512 Acquired absence of left leg below knee; Z99.2 Dependence on renal dialysis; Z79.4 Long term (current) use of insulin; Z79.899 Other long term (current) drug therapy; X58.XXXA Exposure to other specified factors, initial encounter; Y93.89 Activity, other specified; Y92.89 Other specified places as the place of occurrence of the external cause; Y99.8 Other external cause status
CPT/HCPCS: 99283

== ENCOUNTER 2023-05-14 09:20 | Emergency (ER) | payer BC ==
[~2023-05-14] VITALS: Ht 175.3 cm; Wt 90.7 kg
[~2023-05-14 09:20] MED LIST changes: +CEPH-588 PO
[2023-05-14 09:47] VITALS: BP 142/80; PULSE 54; RESP 18; TEMP 85.3; O2SAT 99
[2023-05-14] MEDS ORDERED: DEXTROSE 50% 50 ML SYR IVP ONE (10:00)
[2023-05-14 10:12] LABS: BASOPHILS # (AUTO) 0.1 K/uL (0.00-0.22); BASOPHILS % (AUTO) 1.6 % (0.0-2.0); EOSINOPHILS # (AUTO) 0.1 K/uL (0-0.4); EOSINOPHILS % (AUTO) 1.6 % (0.0-4.0); HEMOGLOBIN 12.7 g/dL (12.0-18.0); LYMPHOCYTES # (AUTO) 1.7 K/uL (2.0-11.5); LYMPHOCYTES % (AUTO) 18.5 % (20.5-51.1); MEAN CORPUSCULAR HEMOGLOBIN 33 pg (27-31); MEAN CORPUSCULAR HGB CONC 34 g/dL (33-37); MEAN CORPUSCULAR VOLUME 97.2 fL (80-94); MONOCYTES # (AUTO) 1.3 K/uL (0.8-1.0); MONOCYTES % (AUTO) 13.9 % (1.7-9.3); NEUTROPHILS # (AUTO) 5.9 K/uL (1.8-7.7); NEUTROPHILS % (AUTO) 64.4 % (42.2-75.2); PLATELET COUNT (AUTO) 256 K/uL (140-450); RED BLOOD CELL COUNT(AUTO) 3.91 MIL/uL (4.20-6.10); RED CELL DISTRIBUTION WIDTH 13.3 % (11.6-13.7); WHITE BLOOD COUNT (AUTO) 9.1 K/uL (4.8-10.8)
[2023-05-14 10:32] LABS: ALBUMIN 4.4 g/dL (3.4-5.0); ANION GAP 15.2 (8-16); CALCIUM 9.6 mg/dL (8.5-10.1); CARBON DIOXIDE 31.2 mmol/L (21-32); POTASSIUM 4.4 mmol/L (3.5-5.1); TOTAL BILIRUBIN 0.5 mg/dL (0.0-1.0); TOTAL PROTEIN, SERUM 8.7 g/dL (6.4-8.2)
[2023-05-14 10:36] LABS: CREATININE 9.6 mg/dL (0.6-1.3); LACTIC ACID 1.9 mmol/L (0.4-2.0)
[2023-05-14 10:59] LABS: INR 1.04 (0.8-1.2); PARTIAL THROMBOPLASTIN TIME 22.8 secs (22-35.6); PROTHROMBIN TIME 10.9 secs (10.8-13.4)
[2023-05-14 12:13] LABS: APPEARANCE,URINE CLEAR (CLEAR); BILIRUBIN,URINE NEGATIVE (NEGATIVE); BLOOD, URINE 1+ (NEGATIVE); COLOR,URINE YELLOW (YELLOW); LEUKOCYTE ESTERASE ,URINE NEGATIVE (NEGATIVE); NITRITE, URINE NEGATIVE (NEGATIVE); PH,URINE 7.5 (5.0-9.0); PROTEIN,URINE 2+ (NEGATIVE); UGLUCOSE NEGATIVE (NEGATIVE); UROBILINOGEN,URINE 0.2 EU/dL (0.2 - 1)
[2023-05-14 12:37] LABS: BACTERIA,URINE FEW /HPF (None Seen); MUCUS,URINE None Seen /LPF (None Seen); RBC,URINE 0-5 /HPF (0-5); SQUAMOUS EPITHELIAL CELL,UR 0-3 (FEW) /LPF (0-3 (FEW)); TRICHOMONAS,URINE None Seen /HPF (None Seen); WBC,URINE 0-5 /HPF (0-5); WHITE BLOOD CELL CASTS,URINE None Seen /LPF (None Seen); YEAST,URINE None Seen /HPF (None Seen)
[2023-05-14 13:20] VITALS: BP 143/65; PULSE 64; RESP 16; TEMP 97.4; O2SAT 98
== END 2023-05-14 13:22 | disposition home or self-care (01) ==
LOC: MED 09:20
DX: E11.649 Type 2 diabetes mellitus with hypoglycemia without coma (principal); E11.22 Type 2 diabetes mellitus with diabetic chronic kidney disease; I12.0 Hypertensive chronic kidney disease with stage 5 chronic kidney disease or end stage renal disease; N18.6 End stage renal disease; Z99.2 Dependence on renal dialysis; Z79.899 Other long term (current) drug therapy; Z79.4 Long term (current) use of insulin; Z79.2 Long term (current) use of antibiotics
CPT/HCPCS: 36415; 71045; 80053; 81001; 82948; 83605; 83880; 84484; 85025; 85610; 85730; 87086; 93005; 96374; 99285; Q0092

== ENCOUNTER 2023-11-02 23:27 | Emergency (ER) | payer BC ==
[~2023-11-02] VITALS: Ht 180.3 cm; Wt 77.1 kg
[2023-11-02 23:42] VITALS: BP 158/95; PULSE 98; RESP 18; TEMP 98; O2SAT 98
[2023-11-03] VITALS: O2SAT 98
[2023-11-03 00:04] VITALS: TEMP 98.3
[2023-11-03] MEDS: ENALAPRILAT 2.5 MG/2 ML VIAL IVP ONE (00:18)
[2023-11-03 00:28] VITALS: BP 148/70; PULSE 88; RESP 14; O2SAT 98
[2023-11-03] MEDS ORDERED: AMLO1CAP PO (00:35)
[2023-11-03] MEDS: LABETALOL 20 MG/4 ML VIAL IVP ONE (00:42)
== END 2023-11-03 00:38 | disposition home or self-care (01) ==
LOC: MED 23:27
DX: I12.0 Hypertensive chronic kidney disease with stage 5 chronic kidney disease or end stage renal disease (principal); E11.22 Type 2 diabetes mellitus with diabetic chronic kidney disease; N18.6 End stage renal disease; Z99.2 Dependence on renal dialysis; Z98.890 Other specified postprocedural states; Z79.899 Other long term (current) drug therapy; Z79.4 Long term (current) use of insulin
CPT/HCPCS: 82948; 93005; 96374; 99283; J3490

== ENCOUNTER 2024-03-27 14:13 | Emergency (ER) | payer BC ==
[~2024-03-27] VITALS: Ht 177.8 cm; Wt 89.4 kg
[~2024-03-27 14:13] MED LIST changes: +AMLO1CAP PO
[2024-03-27 14:18] VITALS: BP 141/74; PULSE 82; RESP 18; TEMP 97.5; O2SAT 97
[2024-03-27] MEDS: TETRACAINE HCL/PF 0.5% OPTH 4 ML BTL OP ONE (17:13)
[2024-03-27] MEDS: BACITRACIN OINT 500 UNITS/GM PKT TP ONE (17:13)
[2024-03-27] MEDS: FLUORESCEIN OPTH STRIP 1 MG OP ONE (17:13)
[2024-03-27] MEDS: NON ADHERENT DRESSING TP SCH (17:16)
[2024-03-27] MEDS ORDERED: CEPH-588 PO (17:27)
[2024-03-27] MEDS ORDERED: BACI-418 TP (17:27)
== END 2024-03-27 17:40 | disposition home or self-care (01) ==
LOC: MED 14:13
DX: L97.519 Non-pressure chronic ulcer of other part of right foot with unspecified severity (principal); H53.8 Other visual disturbances; I12.0 Hypertensive chronic kidney disease with stage 5 chronic kidney disease or end stage renal disease; E11.22 Type 2 diabetes mellitus with diabetic chronic kidney disease; N18.6 End stage renal disease; Z99.2 Dependence on renal dialysis; Z79.4 Long term (current) use of insulin; Z79.899 Other long term (current) drug therapy
CPT/HCPCS: 99284